=== PATIENT | female | born 1975 | race Caucasian/White ===

== ENCOUNTER 2020-08-15 18:39 | Inpatient (IN) | payer BC ==
[2020-08-15 19:19] LABS: #Basophils 0.1 thou/uL (0.0-0.2); #Eosinphils 0.1 thou/uL (0.0-0.7); #Lymphocytes 1.6 thou/uL (1.20-3.40); #Monocytes 0.5 thou/uL (0.11-0.59); #Neutrophils 5.9 thou/uL (1.40-6.50); %Basophils 0.7 % (0.0-1.0); %Eosinophils 1.4 % (0.0-10.0); %Lymphocytes 19.8 % (21.0-51.0); %Monocytes 6.4 % (0.0-10.0); %Neutrophils 71.7 % (42.0-75.0); Hemoglobin 7.2 g/dL (12.0-16.0); Mean Corpuscular Hemoglobin 27.4 pg (27.0-31.0); Mean Platelet Volume 6.7 fL (7.4-10.4); Platelet Count 321 thou/uL (130-400); RBC Distribution Width 12.8 % (11.5-14.5); Red Blood Cell (RBC) Count 2.64 mill/uL (4.20-5.40); White Blood Cell (WBC) Count 8.2 thou/uL (4.8-10.8)
[2020-08-15 19:32] LABS: Bilirubin Negative (Negative); Blood, Urine Moderate (Negative); Glucose, Urine (Dipstick) 500 mg/dL (Negative); Ketone, Urine Negative (Negative); Leukocyte Negative (Negative); Nitrite Negative (Negative); Protein, Urine (Dipstick) > or equal to 300 mg/dL (Neg-Trace); Specific Gravity, Urine 1.025 (1.005-1.030); Urobilinogen 0.2 mg/dL (Less than 2)
[2020-08-15 19:34] LABS: Clarity Cloudy (Clear)
[2020-08-15 19:35] LABS: ALT (SGPT) 15 U/L (8-55); AST (SGOT) 12 U/L (5-34); Albumin 2.4 g/dL (3.5-5.0); Alkaline Phosphatase 81 U/L (40-110); Anion Gap 13 mmol/L (10-20); BUN (Urea Nitrogen) 69 mg/dL (7.0-18.7); Bilirubin, Total Less than 0.2 mg/dL (0.2-1.2); CK (CPK) 383 U/L (29-168); Calc. Creatinine Clearance 0 mL/min (70-130); Calcium 7.7 mg/dL (7.8-10.44); Carbon Dioxide 16 mmol/L (22-29); Chloride 115 mmol/L (98-107); Estimated GFR-MDRD 14; Globulin 2.7 g/dL (2.4-3.5); Glucose 174 mg/dL (70-105); Potassium 5.2 mmol/L (3.5-5.1); Protein, Total 5.1 g/dL (6.0-8.3); Sodium 139 mmol/L (136-145)
[2020-08-15 19:36] LABS: BHCG - Serum Negative (NEGATIVE); Pregs Control Background? CLEAR/WHITE (CLR/WHITE); Pregs Control Bar Appear? YES (CONTROL BAR)
[2020-08-15 19:40] LABS: RBC/HPF 0-3 HPF (0-3); WBC/HPF Greater Than 50 HPF (0-3)
[2020-08-15 19:41] LABS: Bacteria/HPF 4+ HPF (None Seen)
--- NOTE | 2020-08-15 20:15 | RAD ---
FRONTAL RADIOGRAPH CHEST PORTABLE UPRIGHT: 08/15/20 COMPARISON: None. HISTORY: Hypertension and shortness of breath. FINDINGS: No pneumothorax, pleural fluid, focal consolidation, or alveolar edema. the cardiac silhouette appear s enlarged. There is mild pulmonary vascular prominence. IMPRESSION: No lobar consolidation or alveolar edema. Prominent cardiac silhouette POS: ALENA
[2020-08-15] MEDS ORDERED: Labetalol HCl 100 MG/20 ML VIAL ONE (20:42)
[2020-08-15] MEDS ORDERED: Sodium Bicarb 50 MEQ/50 ML Abboject 8.4% SYRINGE ONE (21:08)
[2020-08-15] MEDS ORDERED: Furosemide 40 MG/4 ML VIAL ONE (21:08)
[2020-08-15] MEDS ORDERED: Metoprolol Tartrate 5 MG/5 ML VIAL ONE (21:47)
[2020-08-16] MEDS ORDERED: niCARdipine 20MG In NaCl 20 MG/200 ML BAG ONE ×2 (00:17→03:54)
[2020-08-16] MEDS ORDERED: niCARdipine 25 MG in Sodium Chloride 0.9% 250 ML 240 ML IVPB SCH (00:30)
[2020-08-16] MEDS ORDERED: CEFAZOLIN 1 GM VIAL IM SCH (00:34)
[2020-08-16] MEDS ORDERED: Dextrose 5% in Water 1,000 ML IV PRN (00:36)
[2020-08-16] MEDS ORDERED: HumaLOG 300 UNITS/3 ML VIAL SC PRN (00:36)
[2020-08-16] MEDS ORDERED: Dextrose 50% Abboject 50 ML SYRINGE SLOW IVP PRN (00:36)
[2020-08-16] MEDS ORDERED: CEFAZOLIN 1 GM VIAL IVPB SCH (00:42)
--- NOTE | 2020-08-16 01:44 | HP ---
REASON FOR ADMISSION: Uncontrolled blood pressure. HISTORY OF PRESENT ILLNESS: This is a 44-year-old female patient who is known to have chronic kidney disease stage 3. She has been feeling weak and has been noticing that her blood pressure has been uncontrolled. Also she reports heavy menstrual bleeding and since her last menstrual cycle, her blood pressure has been going up, although she has been taking her medications, her blood pressure continues to be elevated. She recently had some shortness of breath and felt weak. She reported these symptoms, her primary care physician advised to go to the ER. In the ER, she was found to have a very elevated blood pressure, also more anemic than previous. She did receive IV labetalol and IV Lopressor, but blood pressure kept on going up and currently it is systolic of 225. She is being started on a nicardipine drip. Otherwise, she denies chest pain. PAST MEDICAL HISTORY: 1. Chronic kidney disease was stage III, now stage IV. 2. Diabetes, uses insulin and oral antibiotics. 3. High blood pressure. 4. Anemia. 5. Heavy menstrual bleeding, scheduled for ablation next month. 6. Neuropathy. 7. Lower extremity swelling. 8. GERD. 9. Hypothyroidism. SOCIAL HISTORY: She does not smoke. Does not drink alcohol. FAMILY HISTORY: Positive for diabetes and heart disease and strokes. ALLERGIES: NO NOTE OF ANY DRUG ALLERGY. REVIEW OF SYSTEMS: All systems reviewed except the above mentioned, found to be negative. PHYSICAL EXAMINATION: GENERAL: Awake, alert, oriented, does not appear in distress. VITAL SIGNS: Her blood pressure is 220/109, heart rate of 89, temperature 98.2, saturating 99% room air. HEENT: Head is nontraumatic, normocephalic. Pupils equal, reactive. Extraocular movements are intact. Nonicteric sclerae. Well injected conjunctivae. Oral mucosa normal. Nasal mucosa normal. NECK: Supple. No adenopathy. No murmur. Thyroid is not palpable. Trachea is midline. No supraclavicular adenopathy. HEART: S1, S2 regular. Systolic murmur is heard. No displacement of PMI. LUNGS: Clear to auscultation bilaterally. No wheezes, rhonchi, or crackles. ABDOMEN: Bowel sounds are positive. Nontender abdomen. No hepatosplenomegaly. EXTREMITIES: 1+ pitting edema bilateral lower extremities. NEURO: Cranial nerves II through XII within normal limits. Normal motor function. Normal sensory function. LABORATORY DATA: Blood work shows a WBC of 8.2, hemoglobin of 7.2, previous hemoglobin in March was 9, platelets of 321. Sodium 139, potassium 5.2, bicarb of 16, previous bicarb was 20, creatinine 3.58. CK of 383, BNP of 359.6. Urinalysis shows moderate blood, greater than 50 wbc's. EKG shows normal sinus rhythm, QTc of 457 per my read. ASSESSMENT AND PLAN: This is a 44-year-old female patient, who is presenting with weakness and uncontrolled blood pressure, found to be in hypertensive urgency and found to be more anemic, most likely secondary to her heavy menses, also her worsening chronic kidney disease. Cardiac: The patient has hypertensive urgency. She did not respond to IV labetalol and Lopressor. She is started on a nicardipine drip. Renal System and electrolyte: The patient has worsening of her kidney disease. She has worsening metabolic acidosis. She did receive bicarbonate in the ER and Nephrology was contacted by the ER physician. She did receive Kayexalate for high potassium level. Hematology: The patient is more anemic. She will receive a unit of blood. Recheck her labs in the morning. For her diabetes, she will be on insulin sliding scale and long-acting insulin. Her urinalysis is positive for UTI. I will have her on IV Ancef, awaiting urine culture results. One hour of critical care time was spent to manage this patient. Job ID: [id number]
[2020-08-16] MEDS ORDERED: CEFAZOLIN 1 GM VIAL ONE (01:46)
[2020-08-16] MEDS ORDERED: Acetaminophen 325 MG TAB ONE (02:33)
[2020-08-16 03:59] LABS: #Eosinphils 0.1 thou/uL (0.0-0.7); #Lymphocytes 2.1 thou/uL (1.20-3.40); #Monocytes 0.9 thou/uL (0.11-0.59); #Neutrophils 7.4 thou/uL (1.40-6.50); %Basophils 0.3 % (0.0-1.0); %Eosinophils 1.3 % (0.0-10.0); %Lymphocytes 19.7 % (21.0-51.0); %Monocytes 8.9 % (0.0-10.0); %Neutrophils 69.9 % (42.0-75.0); Hemoglobin 8.5 g/dL (12.0-16.0); Mean Corpuscular HGB CONC 32.9 g/dL (32.0-36.0); Mean Corpuscular Hemoglobin 27.4 pg (27.0-31.0); Mean Platelet Volume 6.9 fL (7.4-10.4); Platelet Count 321 thou/uL (130-400); RBC Distribution Width 13.2 % (11.5-14.5); White Blood Cell (WBC) Count 10.6 thou/uL (4.8-10.8)
[2020-08-16 04:24] LABS: Anion Gap 15 mmol/L (10-20); BUN (Urea Nitrogen) 73 mg/dL (7.0-18.7); Calc. Creatinine Clearance 36 mL/min (70-130); Calcium 7.9 mg/dL (7.8-10.44); Carbon Dioxide 14 mmol/L (22-29); Chloride 116 mmol/L (98-107); Estimated GFR-MDRD 13; Glucose 130 mg/dL (70-105); Potassium 4.4 mmol/L (3.5-5.1); Sodium 141 mmol/L (136-145)
[2020-08-16] MEDS: ceFAZolin 1 GM/D5W 1 GM in Premix Bag 1 BAG IVPB SCH ×4 (05:18→20:46)
[2020-08-16] MEDS ORDERED: DILTIAZEM HCL 60 MG PO SCH (09:00)
[2020-08-16] MEDS ORDERED: Lisinopril 10 MG TAB ONE (10:38)
[2020-08-16] MEDS: Lisinopril 20 MG TAB PO SCH (10:40)
[2020-08-16] MEDS ORDERED: Metoprolol Tartrate 5 MG/5 ML VIAL ONE (11:05)
[2020-08-16] MEDS: Metoprolol Tartrate 5 MG/5 ML VIAL IVP PRN ×2 (11:10→17:43)
[2020-08-16] MEDS ORDERED: Acetaminophen 500 MG TAB ONE (11:51)
[2020-08-16] MEDS: Carvedilol 25 MG TAB PO SCH ×2 (12:00→20:51)
[2020-08-16] MEDS: Pregabalin 50 MG CAP PO SCH ×3 (12:01→20:51)
--- NOTE | 2020-08-16 12:02 | CON ---
DATE OF CONSULTATION: REASON FOR CONSULTATION: Elevated creatinine. HISTORY OF PRESENT ILLNESS: This is a very pleasant 44-year-old female, who presented to the hospital for uncontrolled blood pressure. The patient's creatinine has increased from 3.5 to 3.7. Prior baseline in December was 1.8. The patient has had progressive increase in creatinine and is developing hyperkalemia and acidosis. The patient denies any poor appetite. Denies any nausea, vomiting, or chest pain. High blood pressure is running high as well. PAST MEDICAL HISTORY: Hypertension, CKD stage 4, diabetes mellitus, obesity, neuropathy, swelling, GERD, and hypothyroidism. SOCIAL HISTORY: No alcohol or drug use. FAMILY HISTORY: Negative for ESRD. ALLERGIES: REVIEWED. HOME MEDICATIONS: REVIEW OF SYSTEMS: 15-point review of system was performed, negative except for positives noted above. HEENT: Eyes intact, no diplopia. Ears: No hearing loss or earache. Nose: No discharge or bleeding. Chest: No cough or phlegm. Abdomen: No nausea or vomiting. Genitourinary: No hematuria. No Sawant catheter. Musculoskeletal: No low back pain. No joint swelling or pain. Neurological: No syncope. No seizures. Skin: No complaints of rash or itching. Psychiatric: No depression. Constitutional: No weight loss or loss of appetite. PHYSICAL EXAMINATION: General: The patient is awake and alert. Vital Signs: Afebrile, pulse 95, breathing at 16, blood pressure 170/90. HEENT: Head normocephalic and atraumatic. Eyes intact, no ulcers. Nose intact, no ulcers. Ears intact, no ulcers. Neck: Supple. No JVD. Chest: Symmetrical and clear. Cardiovascular: Shows S1 and S2, no rub, no murmur. Gastrointestinal: Abdomen is soft, bowel sounds positive. Extremities: Show no edema or ulcers. Skin: Shows no rash or petechiae. Musculoskeletal: Shows no joint swelling or stiffness. Genitourinary: Shows no Sawant or CVA tenderness. Neurologic: Motor intact. Cranial nerves intact. ASSESSMENT AND PLAN: 1. Chronic kidney disease stage 5. Risks versus benefits of dialysis were discussed. We will plan for AV fistula. We will titrate risk factors including blood pressure, hypertension, would recommend adding hydralazine . 2. Anemia, stable. Medication based on GFR appropriate. Job ID: [id number]
[2020-08-16] MEDS ORDERED: HumaLOG 300 UNITS/3 ML VIAL ONE (12:59)
[2020-08-16 14:55] LABS: SARS-CoV-2 MS2 Positive; SARS-CoV-2 N Gene Negative; SARS-CoV-2 S Gene Negative; SARS-CoV-2 by NAA Not Detected (NotDetected); SARS-CoV-2 orf1ab Negative
--- NOTE | 2020-08-16 15:00 | ULT ---
Vascular mapping ultrasound for dialysis access: 08/16/2020 HISTORY: End-stage renal disease, evaluate for dialysis access. TECHNIQUE: Arterial and venous structures of bilateral upper extremities assessed with Doppler inter rogation including color flow and spectral analysis as detailed below. FINDINGS: VESSEL DIAMETER (mm) Right Brachial Artery 6.3 Right Radial Artery 2.5 Right Ulnar Artery 2.0 Left Brachial Artery 5.3 Left Radial Artery 3.2 Left Ulnar Artery 2.7 The internal jugular vein, subclavian vein, and axillary vein are patent bilaterally. RIGHT CEPHALIC VEIN: Above Elbow Proximal 4.6 Above Elbow Mid 4.3 Above Elbow Distal 5.5 At Elbow 6.2 Below Elbow Proximal 3.7 Below Elbow Mid 3.8 Below Elbow Distal 3.4 RIGHT BASILIC VEIN: Above Elbow Proximal 5.8 Above Elbow Mid 5.5 Above Elbow Distal 6.3 At Elbow 4.1 Below Elbow Proximal 2.5 Below Elbow Mid 2.1 Below Elbow Distal 1.7 LEFT BASILIC VEIN: Above Elbow Proximal 5.0 Above Elbow Mid 6.8 Above Elbow Distal 6.8 At Elbow 5.2 Below Elbow Proximal 3.3 Below Elbow Mid 3.2 Below Elbow Distal 2.7 LEFT CEPHALIC VEIN: Above Elbow Proximal 5.7 Above Elbow Mid 5.5 Above Elbow Distal 5.3 At Elbow 5.7 Below Elbow Proximal 3.7 Below Elbow Mid 3.8 Below Elbow Distal 3.5 IMPRESSION: Vascular access mapping prior to dialysis access as detailed above. Transcribed Date/Time: 08/16/2020 3:28 PM
[2020-08-16] MEDS ORDERED: CEFAZOLIN 2 GM in Premix Bag 1 BAG IVPB SCH (15:15)
--- NOTE | 2020-08-16 17:16 | CON ---
DATE OF CONSULTATION: HISTORY OF PRESENT ILLNESS: Angie Coronado is a 44-year-old female, admitted two days ago, held in the ER because of lack of beds in the hospital. Patient lives in [place]. She is . She has two children. She has chronic kidney disease. She has type 2 diabetes mellitus, insulin dependent, oral hypoglycemic dependent for the past more than 20 years. She has deteriorating renal function. Dr. Pendleton has asked me to see her regarding placement of a fistula. Ultrasound vein mapping reveals excellent veins in both arms despite antecubital IV placed on admission, removed today on my consultation. Plan is for left arm fistula. She will hopefully be able to avoid a catheter. She was admitted this hospitalization for [id number] hypertension. ALLERGIES: NONE. SOCIAL HISTORY: Tobacco, none. Alcohol, none. MEDICATIONS: 1. Levothyroxine 50 mcg a day. 2. Furosemide 40 mg b.i.d. 3. Carvedilol 25 mg b.i.d. 4. Repaglinide 0.5 mg t.i.d. 5. Lisinopril 20 mg daily. 6. Lyrica 50 mg t.i.d. 7. Diltiazem 60 mg b.i.d. 8. Atorvastatin 20 mg p.m. 9. Glipizide 10 mg a.m. with meals. 10. Protonix 40 mg a day. 11. Metolazone 2.5 mg daily. PAST SURGICAL HISTORY: , ankle surgery, and foot surgery. PAST MEDICAL HISTORY: Type 2 diabetes mellitus; hypertension; and chronic kidney disease, almost needing dialysis. REVIEW OF SYSTEMS: Ten-point noncontributory. FAMILY HISTORY: Noncontributory. PHYSICAL EXAMINATION: VITAL SIGNS: 98 degrees, 170/90, and respiratory rate 20. HEAD, EARS, EYES, NOSE, AND THROAT: Unremarkable. LUNGS: Clear to auscultation. CARDIAC: Regular rate and rhythm, without murmur or gallop. ABDOMEN: Soft, obese, nontender. Infraumbilical midline scar from previous C-sections, infraumbilical incisional hernia. EXTREMITIES: Unremarkable. ASSESSMENT/PLAN: 1. End-stage renal disease secondary to diabetes and hypertension. Plan: Left arm primary fistula. She understands risks and benefits, consents. 2. Incisional hernia, infraumbilical, asymptomatic. Would need to repair should she ever consider peritoneal dialysis. 3. Morbid obesity. 4. Metabolic syndrome. 5. Hypertension. 6. Insulin-dependent diabetes mellitus. Job ID: [id number]
[2020-08-16] MEDS: Levothyroxine Sodium 50 MCG TAB PO SCH (18:34)
[2020-08-16] MEDS: Insulin Glargine 15 UNITS in Pre-Filled Syringe 1 EACH SC SCH (21:57)
[2020-08-17] MEDS: Metoprolol Tartrate 5 MG/5 ML VIAL IVP PRN (04:23)
[2020-08-17] MEDS: ceFAZolin 1 GM/D5W 1 GM in Premix Bag 1 BAG IVPB SCH ×2 (05:16→17:40)
[2020-08-17] MEDS: Lisinopril 20 MG TAB PO SCH (07:52)
[2020-08-17] MEDS: Carvedilol 25 MG TAB PO SCH (07:53)
[2020-08-17] MEDS: Levothyroxine Sodium 50 MCG TAB PO SCH (07:53)
[2020-08-17] MEDS: Pregabalin 50 MG CAP PO SCH ×3 (07:53→20:32)
[2020-08-17] MEDS ORDERED: FLU VACC QS2020-21(6MOS UP)/PF 60 MCG/0.5 ML SYRINGE IM ONE (09:00)
[2020-08-17] MEDS ORDERED: Bupivacaine HCl 0.5%/Epinephrine 1:200,000/PF 30 ml Vial ONE (10:48)
[2020-08-17 11:43] LABS: Anion Gap 12 mmol/L (10-20); BUN (Urea Nitrogen) 68 mg/dL (7.0-18.7); Calc. Creatinine Clearance 38 mL/min (70-130); Calcium 7.9 mg/dL (7.8-10.44); Carbon Dioxide 18 mmol/L (22-29); Chloride 117 mmol/L (98-107); Estimated GFR-MDRD 12; Glucose 121 mg/dL (70-105); Potassium 4.1 mmol/L (3.5-5.1); Sodium 143 mmol/L (136-145)
--- NOTE | 2020-08-17 11:43 | PRG ---
DATE OF SERVICE: SUBJECTIVE: A 44-year-old female being seen for acute kidney injury. The patient denied nausea, vomiting, or chest pain. OBJECTIVE: General: The patient is awake and alert. VITAL SIGNS: Pulse 80, breathing 16, and blood pressure . HEENT: Head normocephalic and atraumatic. Eyes intact, no ulcers. Nose intact, no ulcers. Ears intact, no ulcers. Neck: Supple. No JVD. Chest: Symmetrical and clear. Cardiovascular: Shows S1 and S2, no rub, no murmur. Gastrointestinal: Abdomen is soft, bowel sounds positive. Extremities: Show no edema or ulcers. Skin: Shows no rash or petechiae. Musculoskeletal: Shows no joint swelling or stiffness. Genitourinary: Shows no Sawant or CVA tenderness. Neurologic: Motor intact. Cranial nerves intact. LABORATORY DATA: Show hemoglobin is pending and creatinine is pending. ASSESSMENT: Chronic kidney disease stage 5. We will follow labs. Hypertension, stable. Anemia, stable. Medication based on GFR appropriate. Hypertension. Would recommend increasing hydralazine to 100 t.i.d. and adding nifedipine 30 mg XL daily. Job ID: [id number]
[2020-08-17] MEDS ORDERED: Fentanyl 100 MCG/2 ML VIAL ONE ×2 (12:41→13:29)
[2020-08-17 13:26] VITALS: BMI 44.9
[2020-08-17] MEDS ORDERED: Lidocaine 2% w/Epinephrine 1:200K 20 ML VIAL ONE (13:31)
[2020-08-17] MEDS ORDERED: Bupivacaine PF 0.5% 30 ML VIAL ONE (13:31)
[2020-08-17] MEDS ORDERED: Heparin 5,000 UNITS/ML VIAL ONE (13:31)
[2020-08-17] MEDS ORDERED: Ioversol 68 % 50 ML VIAL ONE (13:31)
[2020-08-17] MEDS ORDERED: Protamine Sulfate 50 MG/5 ML VIAL ONE (13:31)
[2020-08-17] MEDS ORDERED: Propofol 500 MG/50 ML VIAL ONE (13:37)
[2020-08-17] MEDS ORDERED: Midazolam HCl 2 mg/2 ml Vial ONE (13:37)
--- NOTE | 2020-08-17 17:18 | PDOC.HOSPP ---
- Subjective Encounter Date: 08/17/20 Subjective: The patient has no new complaints today. - Objective Vital Signs & Weight: Vital Signs (12 hours) Temp Pulse Resp BP Pulse Ox 08/17/20 15:25 96.8 F L 85 18 118/93 H 94 L 08/17/20 07:20 97.7 F 83 12 181/83 H 95 Weight Admit Weight 257 lb 15.053 oz Weight 295 lb 12.8 oz I&O: 08/16/20 08/17/20 08/18/20 06:59 06:59 06:59 Intake Total 120 480 Balance 120 480 Result Diagrams: 08/16/20 03:50 08/17/20 11:03 Additional Labs: Accuchecks 08/17/20 08/17/20 08/17/20 16:47 12:21 05:37 POC Glucose 122 H 115 H 122 H 08/16/20 22:12 POC Glucose 156 H Hospitalist ROS - Medication Medications: Active Medications Generic Name Dose Route Start Last Admin Trade Name Freq PRN Reason Stop Dose Admin Carvedilol 25 mg 08/16/20 09:00 08/17/20 07:53 Carvedilol 25 Mg Tab PO 25 mg BID JASON Administration Diltiazem HCl 60 mg 08/16/20 09:00 08/17/20 07:52 Diltiazem Hcl 30 Mg Tablet PO 60 mg BID JASON Administration Insulin Glargine 15 units/ 0.15 mls @ 0 mls/hr 08/16/20 21:00 08/16/20 21:57 Miscellaneous Medication SC Not Given HS JASON Cefazolin Sodium/Dextrose 1 gm 50 mls @ 100 mls/hr 08/16/20 06:00 08/17/20 05:16 / Device IVPB 50 mls 0600,1800 JASON Administration Insulin Human Lispro 0 units 08/16/20 00:36 08/16/20 13:01 Humalog 300 Units/3 Ml Vial SC 2 unit .MODERATE SLIDING SC PRN Administration Moderate Correctional Scale Levothyroxine Sodium 50 mcg 08/16/20 09:00 08/17/20 07:53 Levothyroxine Sodium 50 Mcg Tab PO 50 mcg QAM JASON Administration Lisinopril 20 mg 08/16/20 09:00 08/17/20 07:52 Lisinopril 20 Mg Tab PO 20 mg DAILY JASON Administration Metoprolol Tartrate 5 mg 08/15/20 21:41 08/17/20 04:23 Metoprolol Tartrate 5 Mg/5 Ml Vial IVP 5 mg Q6H PRN Administration SBP > 140 Pregabalin 50 mg 08/16/20 09:00 08/17/20 16:34 Pregabalin 50 Mg Cap PO Not Given TID JASON - Exam General Appearance: awake alert ENT: normocephalic atraumatic Neck: supple, no JVD Respiratory: normal chest expansion, no tachypnea Extremities: no cyanosis, no clubbing Neurological: cranial nerve grossly intact, no focal deficits Hosp A/P (1) Hypertensive urgency Code(s): I16.0 - HYPERTENSIVE URGENCY Status: Acute (2) End stage renal disease Code(s): N18.6 - END STAGE RENAL DISEASE Status: Acute (3) Anemia due to chronic kidney disease Code(s): N18.9 - CHRONIC KIDNEY DISEASE, UNSPECIFIED; D63.1 - ANEMIA IN CHRONIC KIDNEY DISEASE Status: Acute - Plan The patient's blood pressure has been well controlled through the end of the day. Continue current antihypertensive medications. If her blood pressure becomes uncontrolled we will increase hydralazine and add nifedipine as recommended by nephrology. Hemodialysis per nephrology.
[2020-08-17] MEDS: hydrALAZINE 25 MG TAB PO SCH ×2 (17:39→20:32)
--- NOTE | 2020-08-17 19:48 | OP ---
DATE OF PROCEDURE: 08/17/2020 PREOPERATIVE DIAGNOSES: Chronic kidney disease, not yet started dialysis; obesity; diabetes. POSTOPERATIVE DIAGNOSES: Chronic kidney disease, not yet started dialysis; obesity; diabetes. PROCEDURE PERFORMED: Left Odalis fistula, 4 mm coronary dilator, cephalic vein outflow wrist, good quality radial artery. ANESTHESIA: Regional and TIVA. DESCRIPTION OF PROCEDURE: The patient was taken to the operating room where under regional anesthesia and intravenous sedation, left upper extremity was prepared with ChloraPrep and draped in routine fashion. Incision was made very longitudinally in the left wrist between the cephalic vein and radial artery, carried down through skin and subcutaneous tissue. Cephalic vein was of good quality as was the radial artery. Both dissected free and the patient was given 6000 units of heparin intravenously. Radial artery dissected free, controlled with silastic vessel loop. Cephalic vein dissected free, stumped on the hand side, ligated with 3-0 silk suture, divided, spatulated, interrogated, passing coronary dilators from 2 mm to 4 mm coronary dilator without obstruction, infiltrating heparinized saline solution, and placing an atraumatic bulldog clamp and longitudinal arteriotomy made in the radial artery for a 2.5 cm anastomosis. Continuous suture of 6-0 Prolene used to anastomose the end cephalic vein to side radial artery after spatulating the cephalic vein accordingly. After completing the anastomosis, vascular clamps were released. There was a good Doppler signal throughout the cephalic vein outflow in the upper extremity. Inspection was made. There were no visible branches from the wrist incision. The patient was given 25 mg protamine by Anesthesia. Subcutaneous tissue was approximated with 3-0 Monocryl, skin with subdermal 4-0 Monocryl, and Dresden glue applied. Job ID: [id number]
[2020-08-17] MEDS: Furosemide 40 MG TAB PO SCH (20:32)
[2020-08-17] MEDS: Insulin Glargine 15 UNITS in Pre-Filled Syringe 1 EACH SC SCH (20:38)
[2020-08-18] MEDS: ceFAZolin 1 GM/D5W 1 GM in Premix Bag 1 BAG IVPB SCH ×2 (05:24→18:03)
[2020-08-18] MEDS: Lisinopril 20 MG TAB PO SCH (09:52)
[2020-08-18] MEDS: hydrALAZINE 25 MG TAB PO SCH ×3 (09:53→20:15)
[2020-08-18] MEDS: Furosemide 40 MG TAB PO SCH ×2 (09:54→20:15)
[2020-08-18] MEDS: Pregabalin 50 MG CAP PO SCH ×3 (09:54→20:15)
[2020-08-18] MEDS: Levothyroxine Sodium 50 MCG TAB PO SCH (09:54)
[2020-08-18] MEDS: Acetaminophen 500 MG TAB PO PRN ×2 (09:57→17:08)
[2020-08-18 10:27] LABS: Hemoglobin 8.3 g/dL (12.0-16.0)
--- NOTE | 2020-08-18 10:45 | PRG ---
DATE OF SERVICE: SUBJECTIVE: A 44-year-old female being seen for acute kidney injury. The patient denies any nausea, vomiting, or chest pain. OBJECTIVE: GENERAL: The patient is awake and alert. VITAL SIGNS: Afebrile, pulse 84, breathing at 16, blood pressure 152/71. HEENT: Head normocephalic and atraumatic. Eyes intact, no ulcers. Nose intact, no ulcers. Ears intact, no ulcers. Neck: Supple. No JVD. Chest: Symmetrical and clear. Cardiovascular: Shows S1 and S2, no rub, no murmur. Gastrointestinal: Abdomen is soft, bowel sounds positive. Extremities: Show no edema or ulcers. Skin: Shows no rash or petechiae. Musculoskeletal: Shows no joint swelling or stiffness. Genitourinary: Shows no Sawant or CVA tenderness. Neurologic: Motor intact. Cranial nerves intact. LABORATORY DATA: Pending. ASSESSMENT: Chronic kidney disease stage 5. Recheck labs. Hypertensive anemia, stable. No urgent indication for dialysis. We will follow labs. Job ID: [id number]
[2020-08-18 10:47] LABS: Anion Gap 14 mmol/L (10-20); BUN (Urea Nitrogen) 63 mg/dL (7.0-18.7); Calc. Creatinine Clearance 38 mL/min (70-130); Calcium 7.9 mg/dL (7.8-10.44); Carbon Dioxide 16 mmol/L (22-29); Chloride 114 mmol/L (98-107); Estimated GFR-MDRD 12; Glucose 123 mg/dL (70-105); Potassium 3.9 mmol/L (3.5-5.1); Sodium 140 mmol/L (136-145)
--- NOTE | 2020-08-18 15:33 | PDOC.HOSPP ---
- Subjective Subjective: BP still elevated. d/w with Dr. Pendleton, recommended make some adjustment to her antihypertensive as follow: Restart Coreg 25 mg BID Incr hydralazine to 100 mg TID D/C Cardizem, and start Procardia XL 90 mg daily Cont current Lasix and Lisinopril - Objective Vital Signs & Weight: Vital Signs (12 hours) Temp Pulse Resp BP BP BP Pulse Ox 08/18/20 12:55 98.5 F 80 16 157/73 H 96 08/18/20 09:53 84 08/18/20 09:52 152/71 H 08/18/20 07:35 98.1 F 84 16 179/86 H 99 08/18/20 04:00 97.8 F 90 15 188/78 H 98 Weight Admit Weight 257 lb 15.053 oz Weight 295 lb 4.8 oz I&O: 08/17/20 08/18/20 08/19/20 06:59 06:59 06:59 Intake Total 480 980 Balance 480 980 Result Diagrams: 08/18/20 10:20 08/18/20 10:20 Additional Labs: Accuchecks 08/18/20 08/18/20 08/17/20 11:04 05:32 20:38 POC Glucose 120 H 87 167 H 08/17/20 16:47 POC Glucose 122 H Radiology Reviewed by me: Yes EKG Reviewed by me: Yes Hospitalist ROS - Medication Medications: Active Medications Generic Name Dose Route Start Last Admin Trade Name Freq PRN Reason Stop Dose Admin Acetaminophen 1,000 mg 08/17/20 12:52 08/18/20 09:57 Acetaminophen 500 Mg Tab PO 1,000 mg Q6H PRN Administration Moderate to Severe Pain (6-10) Furosemide 40 mg 08/16/20 09:00 08/18/20 09:54 Furosemide 40 Mg Tab PO 40 mg BID JASON Administration Insulin Glargine 15 units/ 0.15 mls @ 0 mls/hr 08/16/20 21:00 08/17/20 20:38 Miscellaneous Medication SC 0.15 mls HS JASON Administration Cefazolin Sodium/Dextrose 1 gm 50 mls @ 100 mls/hr 08/16/20 06:00 08/18/20 05:24 / Device IVPB 50 mls 0600,1800 JASON Administration Insulin Human Lispro 0 units 08/16/20 00:36 08/16/20 13:01 Humalog 300 Units/3 Ml Vial SC 2 unit .MODERATE SLIDING SC PRN Administration Moderate Correctional Scale Levothyroxine Sodium 50 mcg 08/16/20 09:00 08/18/20 09:54 Levothyroxine Sodium 50 Mcg Tab PO 50 mcg QAM JASON Administration Lisinopril 20 mg 08/16/20 09:00 08/18/20 09:52 Lisinopril 20 Mg Tab PO 20 mg DAILY JASON Administration Metoprolol Tartrate 5 mg 08/15/20 21:41 08/17/20 04:23 Metoprolol Tartrate 5 Mg/5 Ml Vial IVP 5 mg Q6H PRN Administration SBP > 140 Pregabalin 50 mg 08/16/20 09:00 08/18/20 09:54 Pregabalin 50 Mg Cap PO 50 mg TID JASON Administration - Exam General Appearance: NAD Eye: PERRL ENT: normocephalic atraumatic Neck: supple Heart: RRR Respiratory: CTAB Gastrointestinal: soft, non-tender Extremities: no cyanosis Skin: normal turgor Neurological: cranial nerve grossly intact Musculoskeletal: normal tone, normal strength Psychiatric: normal affect, normal behavior Hosp A/P - Plan (1) Hypertensive urgency Code(s): I16.0 - HYPERTENSIVE URGENCY Status: Acute (2) End stage renal disease Code(s): N18.6 - END STAGE RENAL DISEASE Status: Acute (3) Anemia due to chronic kidney disease Code(s): N18.9 - CHRONIC KIDNEY DISEASE, UNSPECIFIED; D63.1 - ANEMIA IN CHRONIC KIDNEY DISEASE Status: Acute - Plan s/p AVF placement d/w Dr. Pendleton, who recommend to make the follow changes: Restart Coreg 25 mg BID Incr hydralazine to 100 mg TID D/C Cardizem, and start Procardia XL 90 mg daily Cont current Lasix and Lisinopril Home tomorrow if stable follow renal US
[2020-08-18] MEDS ORDERED: hydrALAZINE 25 MG TAB PO SCH (15:45)
--- NOTE | 2020-08-18 16:29 | EKG ---
Test Reason : Blood Pressure : / mmHG Vent. Rate : 087 BPM Atrial Rate : 087 BPM P-R Int : 166 ms QRS Dur : 086 ms QT Int : 380 ms P-R-T Axes : 030 -17 045 degrees QTc Int : 457 ms Normal sinus rhythm Possible Left atrial enlargement Left ventricular hypertrophy Inferior infarct , age undetermined Abnormal ECG Confirmed by PIERCE AUSTIN DO ([id number]), dictionary editor SAMIRA BOSWELL ([id number]) on 08/18/2020 4:29:23 PM Referred By: Confirmed By:PIERCE AUSTIN DO
--- NOTE | 2020-08-18 16:38 | ULT ---
ULTRASOUND RETROPERITONEUM COMPLETE: (RENAL) DATE: 08/18/2020 HISTORY: 44-year-old female with acute kidney injury FINDINGS: The right kidney measures 13 x 5.5 x 5.5 cm. The left kidney measures 13.5 x 7 x 6.5 cm. Both kidneys have normal parenchymal echogenicity. There is no hydronephrosis. There is an approximately 1.5 x 1 cm right renal mid pole parenchymal cyst. Cursory images of the urinary bladder demonstrate no gross abnormality. IMPRESSION: 1) small right renal cyst. 2) otherwise negative
[2020-08-18] MEDS: Carvedilol 25 MG TAB PO SCH (16:48)
[2020-08-18] MEDS: traMADol HCl 50 MG TAB PO PRN (20:15)
[2020-08-18] MEDS: Insulin Glargine 15 UNITS in Pre-Filled Syringe 1 EACH SC SCH (20:15)
[2020-08-19] MEDS: Metoprolol Tartrate 5 MG/5 ML VIAL IVP PRN (00:15)
[2020-08-19] MEDS ORDERED: cloNIDine 0.1 MG TAB PO PRN (01:33)
[2020-08-19] MEDS ORDERED: NIFEdipine XL 90 MG TAB PO SCH ×2 (04:15→09:00)
[2020-08-19] MEDS: ceFAZolin 1 GM/D5W 1 GM in Premix Bag 1 BAG IVPB SCH (05:25)
[2020-08-19] MEDS: Pregabalin 50 MG CAP PO SCH ×2 (08:27→15:02)
[2020-08-19] MEDS: Levothyroxine Sodium 50 MCG TAB PO SCH (08:27)
[2020-08-19] MEDS: Furosemide 40 MG TAB PO SCH (08:27)
[2020-08-19] MEDS: Carvedilol 25 MG TAB PO SCH (08:27)
[2020-08-19] MEDS: Lisinopril 20 MG TAB PO SCH (08:27)
[2020-08-19] MEDS: hydrALAZINE 25 MG TAB PO SCH ×2 (09:02→14:40)
[2020-08-19 09:20] LABS: Hemoglobin 8.7 g/dL (12.0-16.0); Mean Corpuscular HGB CONC 33.6 g/dL (32.0-36.0); Mean Corpuscular Hemoglobin 27.9 pg (27.0-31.0); Mean Corpuscular Volume 83.1 fL (78.0-98.0); Mean Platelet Volume 7.2 fL (7.4-10.4); Platelet Count 316 thou/uL (130-400); RBC Distribution Width 13.2 % (11.5-14.5); Red Blood Cell (RBC) Count 3.12 mill/uL (4.20-5.40); White Blood Cell (WBC) Count 8.5 thou/uL (4.8-10.8)
[2020-08-19 09:39] LABS: Anion Gap 14 mmol/L (10-20); BUN (Urea Nitrogen) 61 mg/dL (7.0-18.7); Calc. Creatinine Clearance 40 mL/min (70-130); Calcium 8.1 mg/dL (7.8-10.44); Carbon Dioxide 16 mmol/L (22-29); Chloride 112 mmol/L (98-107); Estimated GFR-MDRD 13; Glucose 85 mg/dL (70-105); Potassium 3.5 mmol/L (3.5-5.1); Sodium 138 mmol/L (136-145)
[2020-08-19] MEDS: traMADol HCl 50 MG TAB PO PRN (10:07)
[2020-08-19] MEDS: Acetaminophen 500 MG TAB PO PRN (11:33)
--- NOTE | 2020-08-19 13:35 | PDOC.DS.DS ---
Provider - Provider Date of Admission: 08/16/20 00:09 Admitting Provider: John Montez MD Consultations: General Surgery (AV fistula placement), Nephrology Primary Care Physician: Son Valdez DO Course - Hospital Course Hospital Course: DISCHARGE diagnoses: 1. End-stage renal disease 2. Hypertensive urgency 3. Anemia due to chronic kidney disease 4. Status post left Odalis fistula placement left wrist by Dr. King on 08/17 5. Diabetes type 2 6. GERD 7. Hypothyroidism History of present illness and brief hospital course: The patient is a pleasant 44 years old female who has significant past medical histories of CKD stage IV, diabetes, hypothyroidism, hypertension, who presented to the ED with uncontrolled hypertension. She was evaluated by her PCP, and also complained of short of breath. Her blood pressure was elevated. She was advised to go to the ED for further evaluation. Upon arrival, her systolic was 225, she was given IV labetalol, blood pressure. She was subsequently started on nicardipine drip, for blood pressure control. Nephrology was consulted. She gradually wean off on nicardipine drip. Her blood pressures have been adjusted by nephrology. Her blood pressure is doing much better. Dr. Pendleton, recommend discontinue hydralazine's upon discharge, and switch her Cardizem to Procardia XL 90 mg daily. We also resume her Coreg. She will continue her lisinopril 20 mg daily, and Lasix 40 mg twice daily. This regimen, appeared to be working well for her. Patient was monitored overnight. She is doing well blood pressure now much better controlled. She is okay to discharge from nephrology start and plan. It should be noted that, she also had a fistula placement by Dr. King on 08/17, she tolerated procedure well. She will be follow-up with nephrology Dr. Perez in 2 weeks, and follow-up with Dr. King and PCP upon discharge. Resuscitation Status: 08/16/20 00:09 Resuscitation Status Routine Resuscitation Status: FULL: Full Resuscitation - Labs Lab Results: Laboratory Results - last 24 hr 08/19/20 11:19: POC Glucose 121 H 08/19/20 08:40: WBC 8.5, RBC 3.12 L, Hgb 8.7 L, Hct 25.9 L, MCV 83.1, MCH 27.9, MCHC 33.6, RDW 13.2, Plt Count 316, MPV 7.2 L 08/19/20 08:40: Sodium 138, Potassium 3.5, Chloride 112 H, Carbon Dioxide 16 L, Anion Gap 14, BUN 61 H, Creatinine 3.82 H, Estimated GFR (MDRD) 13, Glucose 85, Calcium 8.1 08/19/20 05:33: POC Glucose 97 08/18/20 20:10: POC Glucose 127 H 08/18/20 16:30: POC Glucose 137 H Allergies No Known Drug Allergies Allergy (Verified 08/18/20 23:00) - Physical Exam Vitals: Vital Signs (12 hours) Temp Pulse Resp BP BP Pulse Ox 08/19/20 11:31 97.6 F 77 16 111/59 L 97 08/19/20 10:11 99/51 L 08/19/20 08:17 97.8 F 82 16 127/59 L 96 08/19/20 05:30 151/67 H 08/19/20 04:25 84 194/76 H 08/19/20 03:15 97.6 F 84 12 194/86 H 97 08/19/20 01:55 198/84 H Weight Admit Weight 257 lb 15.053 oz Weight 299 lb 3.2 oz Physical Exam: The patient was seen and examined on the day of discharge. PHYSICAL EXAM: General Appearance: Alert, oriented, resting comfortably, no apparent distress, well developed/nourished. HEENT: Normocephalic/atraumatic, moist mucous membrane, normal ENT inspection, normal tones. PERRLA, no scleral icterus, normal conjunctiva Neck: Supple, normal inspection, no JVD Respiratory: Lungs are clear bilaterally, normal breath sounds, no accessory muscle use Cardiovascular: Regular rate, regular rhythm, no murmur, no rubs Abdomen: Soft, nontender, nondistended, normal bowel sounds, no organomegaly, no guarding no rebound Back: Normal inspection, no CVA tenderness Extremities: No clubbing, no cyanosis, no edema. New AVF placement left wrist healing well Psych/Mental Status: Normal affect, speech, non-pressured, AAO x 3 Neurologic: CN II-XII are intact. Skin: Warm/Dry, Normal Color, no rashes Plan - Discharge Medications Prescriptions: NIFEdipine [Procardia XL] 90 mg PO DAILY #90 tab Home Medications: Medication Instructions Recorded Confirmed Type Atorvastatin Calcium [Lipitor] 20 mg PO QPM 08/16/20 08/16/20 History Carvedilol [Coreg] 25 mg PO BID 08/16/20 08/16/20 History Furosemide 40 mg PO BID 08/16/20 08/16/20 History Levothyroxine Sodium [Euthyrox] 50 mcg PO QAM 08/16/20 08/16/20 History Lisinopril 20 mg PO DAILY 08/16/20 08/16/20 History Pantoprazole Sodium [Protonix] 40 mg PO DAILY 08/16/20 08/16/20 History Pregabalin [Lyrica] 50 mg PO TID 08/16/20 08/16/20 History Repaglinide 0.5 mg PO TID 08/16/20 08/16/20 History Vit D3-Vit K/Berberine/Hops 1 tablet PO DAILY 08/16/20 08/16/20 History [Ostera Tablet] glipiZIDE [glipiZIDE ER] 10 mg PO QAM-WM 08/16/20 08/16/20 History NIFEdipine [Procardia XL] 90 mg PO DAILY #90 tab 08/19/20 Rx Allergies: No Known Drug Allergies Allergy (Verified 08/18/20 23:00) - Discharge Instructions Discharge Instructions:: Please stop metalazone and Cardizem. Your nephrology started you on Procardia XL, new script sent to your pharmacy Follow up with Dr Davis in 1-2 weeks. Activity:: Activity as Tolerated (exercise & use arm left w/o restrictions) Nourishment:: Low Sodium Diet - Follow up Plan Referrals: Hiro King MD [Active] - 3-4 Weeks Son Valdez DO [Primary Care Provider] - Nancy Davis MD [Active] - 14 Days Disposition: HOME Quality - Care Measures CORE MEASURES:: N/A
[2020-08-19] MEDS ORDERED: Lidocaine 5% Patch TD SCH (14:45)
[2020-08-19] MEDS ORDERED: HYDROcodone/Acetaminophen 5/325 mg Tablet PO PRN (14:45)
[2020-08-19] MEDS ORDERED: Sodium Bicarbonate Tab 325 MG TAB PO SCH (15:00)
[2020-08-19 15:01] VITALS: BP 127/57; TEMP 97.8
[2020-08-20] MEDS ORDERED: Lidocaine Patch Removal 1 EACH TOP SCH (03:00)
--- NOTE | 2020-08-20 04:59 | PRG ---
DATE OF SERVICE: 08/19/2020 SUBJECTIVE: A 44-year-old female, being seen for stage 5 chronic kidney disease. The patient denies any nausea, vomiting, or chest pain. PHYSICAL EXAMINATION: GENERAL: The patient is awake and alert. VITAL SIGNS: Pulse 77, breathing at 16, blood pressure 111/59. HEENT: Head normocephalic and atraumatic. Eyes intact, no ulcers. Nose intact, no ulcers. Ears intact, no ulcers. NECK: Supple. No JVD. CHEST: Symmetrical and clear. CARDIOVASCULAR: Shows S1 and S2, no rub, no murmur. GASTROINTESTINAL: Abdomen is soft, bowel sounds positive. EXTREMITIES: Show no edema or ulcers. SKIN: Shows no rash or petechiae. MUSCULOSKELETAL: Shows no joint swelling or stiffness. GENITOURINARY: Shows no Sawant or CVA tenderness. NEUROLOGIC: Motor intact. Cranial nerves intact. LABORATORY DATA: Show hemoglobin 8.7. Potassium is 3.5, bicarb 16. ASSESSMENT AND PLAN: 1. Stage 5 chronic kidney disease. No urgent indication for dialysis. 2. Hypertension, stable. 3. Anemia, stable. 4. Renal ultrasound was negative. 5. Medication based on GFR appropriate. No indication for dialysis. Job ID: [id number]
[2020-08-20] MEDS ORDERED: NIFEdipine XL 90 MG TAB PO SCH (09:00)
== END 2020-08-19 16:42 | disposition home or self-care (01) | DRG 673 ==
LOC: ERS 18:39 → ERHOLD 08-16 00:09 → 2NO 08-16 17:11
PROVIDERS: ADMIT Internal Medicine; ATTEND Family Medicine
PROC: 031C0ZF Bypass Left Radial Artery to Lower Arm Vein, Open Approach (ICD-10-PCS; principal; 2020-08-17)
DX: I12.0 Hypertensive chronic kidney disease with stage 5 chronic kidney disease or end stage renal disease (principal); N18.6 End stage renal disease; E87.2 Acidosis; N39.0 Urinary tract infection, site not specified; N17.9 Acute kidney failure, unspecified; Z68.42 Body mass index [BMI] 45.0-49.9, adult; I16.0 Hypertensive urgency; D64.9 Anemia, unspecified; K21.9 Gastro-esophageal reflux disease without esophagitis; E03.9 Hypothyroidism, unspecified; E11.22 Type 2 diabetes mellitus with diabetic chronic kidney disease; E88.81 Metabolic syndrome and other insulin resistance; D63.1 Anemia in chronic kidney disease; E11.40 Type 2 diabetes mellitus with diabetic neuropathy, unspecified; E66.01 Morbid (severe) obesity due to excess calories; K43.2 Incisional hernia without obstruction or gangrene; Z79.899 Other long term (current) drug therapy
CPT/HCPCS: 36415; 36416; 36430; 71045; 76770; 80048; 80053; 81003; 81015; 82550; 83880; 84484; 84703; 85014; 85018; 85025; 85027; 86850; 86900; 86901; 87635; 93005; 93970; J0690; J1644; J1815; J1940; J2250; J2704; J2720; J3010; J7050; P9016; Q9967; S0020; U0003

== ENCOUNTER 2020-10-26 14:12 | Inpatient (IN) | payer OTHER ==
[2020-10-26 14:56] LABS: #Basophils 0.1 thou/uL (0.0-0.2); #Eosinphils 0.1 thou/uL (0.0-0.7); #Lymphocytes 2.1 thou/uL (1.20-3.40); #Monocytes 0.7 thou/uL (0.11-0.59); %Basophils 0.6 % (0.0-1.0); %Eosinophils 1.5 % (0.0-10.0); %Lymphocytes 22.9 % (21.0-51.0); Hemoglobin 7.1 g/dL (12.0-16.0); Mean Corpuscular HGB CONC 33.7 g/dL (32.0-36.0); Mean Corpuscular Hemoglobin 28.4 pg (27.0-31.0); Mean Corpuscular Volume 84.3 fL (78.0-98.0); Mean Platelet Volume 6.2 fL (7.4-10.4); Platelet Count 320 thou/uL (130-400); RBC Distribution Width 13.5 % (11.5-14.5)
[2020-10-26 15:17] LABS: ALT (SGPT) 13 U/L (8-55); AST (SGOT) 10 U/L (5-34); Albumin 3.3 g/dL (3.5-5.0); Alkaline Phosphatase 68 U/L (40-110); Anion Gap 15 mmol/L (10-20); BUN (Urea Nitrogen) 65 mg/dL (7.0-18.7); Bilirubin, Total 0.2 mg/dL (0.2-1.2); Calc. Creatinine Clearance 0 mL/min (70-130); Calcium 7.9 mg/dL (7.8-10.44); Carbon Dioxide 16 mmol/L (22-29); Chloride 114 mmol/L (98-107); Globulin 2.8 g/dL (2.4-3.5); Glucose 138 mg/dL (70-105); Potassium 4.7 mmol/L (3.5-5.1); Protein, Total 6.1 g/dL (6.0-8.3); Sodium 140 mmol/L (136-145)
--- NOTE | 2020-10-26 16:52 | PDOC.HHP ---
Hospitalist HPI - History of Present Illness Anemia, Initiation of Dialysis History of Present Illness: Ms. Coronado is a 44-year-old female with past medical history of end-stage renal disease not yet on dialysis, hypertension, hyperlipidemia, hypothyroidism, type 2 diabetes mellitus, GERD who presents to the emergency room sent in by her cut off sawyer log for anemia and initiation of dialysis. Patient follows with Dr. Allan and reports that her hemoglobin level was low on recent outpatient CBC. Dr. Aponte would like to receive 1 unit of packed red blood cells and be admitted for dialysis initiation. Patient reports that she feels generally weak, but with no specific complaints. She denies shortness of breath, chest pain, palpitations. She denies abdominal pain, nausea vomiting diarrhea. She denies dizziness or numbness weakness paresthesias. Patient has had a fistula placed in August 2020 in the left wrist, which she reports her cut off sawyer log said should be used to first attempt at dialysis. Emergency room initial vital signs 183/66, 98.3, 100% on room air. H/H 7.1/21.7. WBC 9.0, platelets 320. BUN/CR 65/4.13. Sodium 140, potassium 4.7. Glucose 148. Patient admitted to hospitalist service for initiation of dialysis. Hospitalist ROS - Review of Systems Constitutional: reports: weakness. denies: fever, chills, sweats, malaise, other Eyes: denies: pain, vision change, conjunctivae inflammation, eyelid inflammation, redness, other ENT: denies: ear pain, ear discharge, nose pain, nose discharge, nose congestion, mouth pain, mouth swelling, throat pain, throat swelling, other Respiratory: denies: cough, dry, shortness of breath, hemoptysis, SOB with excertion, pleuritic pain, sputum, wheezing, other Cardiovascular: denies: chest pain, palpitations, orthopnea, paroxysmal noc. dyspnea, edema, light headedness, other Gastrointestinal: denies: nausea, vomiting, abdominal pain, diarrhea, constipation, melena, hematochezia, other Genitourinary: denies: dysuria, frequency, incontinence, hematuria, retention, other Musculoskeletal: denies: neck pain, shoulder pain, arm pain, back pain, hand pain, leg pain, foot pain, other Skin: denies: rash, lesions, kathy, bruising, other Neurological: denies: weakness, numbness, incoordination, change in speech, confusion, seizures, other - Medication Medications: Sodium bicarbonate Carvedilol Glipizide The past benign Atorvastatin Furosemide Level thyroxine Lisinopril Pantoprazole Nifedipine No known drug allergies Hospitalist History - Past Surgical History Other Surgical History: Surgical history includes Left ankle surgery Fistula creation in August 2020 in the left wrist - Family History Other Family History: Denies family history of cardiac disease or cancer - Social History Smoking Status: Never smoker Alcohol: reports: None Drugs: reports: none Living Situation: With Family Activity level: independent ambulation - Exam General Appearance: NAD, awake alert General - other findings: Pale Eye: PERRL, anicteric sclera ENT: normocephalic atraumatic, no oropharyngeal lesions, moist mucosa Neck: supple, symmetric, no JVD, no thyromegaly, no lymphadenopathy, no carotid bruit Heart: RRR, no murmur, no gallops, no rubs, normal peripheral pulses Respiratory: CTAB, no wheezes, no rales, no ronchi, normal chest expansion, no tachypnea, normal percussion Gastrointestinal: soft, non-tender, non-distended, normal bowel sounds, no palpable masses, no hepatomegaly, no splenomegaly, no bruit Extremities: 1+ LE edema Skin: normal turgor, no lesions, no rashes Neurological: cranial nerve grossly intact, normal sensation to touch, no we akness, no focal deficits, no new deficit Musculoskeletal: normal tone, normal strength, no muscle wasting Psychiatric: normal affect, normal behavior, A&O x 3 Hospitalist Results - Labs Result Diagrams: 10/29/20 03:09 10/29/20 03:09 Lab results: WBC 9.0 thou/uL (4.8-10.8) 10/26/20 14:40 Hgb 7.1 g/dL (12.0-16.0) L 10/26/20 14:40 Hct 21.1 % (36.0-47.0) L 10/26/20 14:40 MCV 84.3 fL (78.0-98.0) 10/26/20 14:40 Plt Count 320 thou/uL (130-400) 10/26/20 14:40 Neutrophils % 67.0 % (42.0-75.0) 10/26/20 14:40 Sodium 140 mmol/L (136-145) 10/26/20 14:40 Potassium 4.7 mmol/L (3.5-5.1) 10/26/20 14:40 Chloride 114 mmol/L (98-107) H 10/26/20 14:40 Carbon Dioxide 16 mmol/L (22-29) L 10/26/20 14:40 BUN 65 mg/dL (7.0-18.7) H 10/26/20 14:40 Creatinine 4.13 mg/dL (0.6-1.1) H 10/26/20 14:40 Glucose 138 mg/dL (70-105) H 10/26/20 14:40 Calcium 7.9 mg/dL (7.8-10.44) 10/26/20 14:40 Total Bilirubin 0.2 mg/dL (0.2-1.2) 10/26/20 14:40 AST 10 U/L (5-34) 10/26/20 14:40 ALT 13 U/L (8-55) 10/26/20 14:40 Alkaline Phosphatase 68 U/L (40-110) 10/26/20 14:40 Serum Total Protein 6.1 g/dL (6.0-8.3) 10/26/20 14:40 Albumin 3.3 g/dL (3.5-5.0) L 10/26/20 14:40 Hospitalist H&P A/P - Plan Plan: End-stage renal disease 44-year-old female with past medical history of end-stage renal disease, sent in by cut off sawyer log for initiation of dialysis. Patient follows with Dr. Manrique. Fistula in place to left wrist with palpable thrill. BUN/CR 65/4.13. Potassium 4.7, sodium 140. Patient has significant social economic barriers to care as she does not currently have insurance. Will consult social work and case management for further recommendation and available resources for patient. Plan Consult nephrology for initiation of dialysis Case management/social work consult Anemia of chronic disease Anemia of chronic disease secondary to end-stage renal disease. H/H 7.1/21.7. Patient hemoglobin low as an outpatient around 6. Patient with generalized weakness and appears pale. Will administer 1 unit of packed red blood cells and continue to trend H&H. Consult nephrology for question initiation of EPO. Plan 1 unit packed red blood cells Trend H&H Transfuse for hemoglobin less than 7, symptomatic anemia Type 2 diabetes mellitus History of type 2 diabetes mellitus on home glipizide. Will continue home glipiz ankush at 1/2 dose, ISS and ACHS glucose checks. Hypertension We will continue home carvedilol, lisinopril, nifedipine. Hyperlipidemia We will continue home statin GERD Continue home pantoprazole Hypothyroidism We will continue home levothyroxine DVT Prophylaxis: SCDs FULL CODE Case discussed with attending physician, Dr. Coleman.
[2020-10-26] MEDS ORDERED: Acetaminophen 650 MG Suppository PR PRN (16:58)
[2020-10-26] MEDS ORDERED: Dextrose 5% in Water 1,000 ML IV PRN (17:03)
[2020-10-26] MEDS ORDERED: Insulin Regular 300 UNITS/3 ML VIAL SC PRN (17:03)
[2020-10-26] MEDS ORDERED: Dextrose 50% Abboject 50 ML SYRINGE SLOW IVP PRN (17:03)
--- NOTE | 2020-10-26 17:13 | CON ---
DATE OF CONSULTATION: REASON FOR CONSULTATION: Stage 6 chronic kidney disease for maintenance hemodialysis. HISTORY OF PRESENT ILLNESS: This is a very pleasant 44-year-old female, who has had progressive CKD and generalized swelling with significant anemia, hemoglobin ranging from 6 to 7, was sent to the emergency room for dialysis and elevated blood pressure. The patient at this time denies any nausea, vomiting, or chest pain. PAST MEDICAL HISTORY: Significant for stage 5 chronic kidney disease, hypertension, anemia, diabetes mellitus, GERD, hypothyroidism, morbid obesity. SOCIAL HISTORY: No alcohol or drug use. FAMILY HISTORY: Negative for ESRD. ALLERGIES: REVIEWED. MEDICATIONS: Home medications, list reviewed. Hospital medications, list reviewed. REVIEW OF SYSTEMS: 15-point review of system was performed, negative except for positives noted above. HEENT: Eyes intact, no diplopia. Ears: No hearing loss or earache. Nose: No discharge or bleeding. Chest: No cough or phlegm. Abdomen: No nausea or vomiting. Genitourinary: No hematuria. No Sawant catheter. Musculoskeletal: No low back pain. No joint swelling or pain. Neurological: No syncope. No seizures. Skin: No complaints of rash or itching. Psychiatric: No depression. Constitutional: No weight loss or loss of appetite. PHYSICAL EXAMINATION: General: The patient is awake, alert. Vital Signs: Afebrile. Pulse 80, breathing 16, blood pressure was 180/90. HEENT: Head normocephalic and atraumatic. Eyes intact, no ulcers. Nose intact, no ulcers. Ears intact, no ulcers. Neck: Supple. No JVD. Chest: Symmetrical and clear. Cardiovascular: Shows S1 and S2, no rub, no murmur. Gastrointestinal: Abdomen is soft, bowel sounds positive. Extremities: Show no edema or ulcers. Skin: Shows no rash or petechiae. Musculoskeletal: Shows no joint swelling or stiffness. Genitourinary: Shows no Sawant or CVA tenderness. Neurologic: Motor intact. Cranial nerves intact. LABORATORY DATA: Reviewed. ASSESSMENT AND PLAN: 1. Stage 6 chronic kidney disease, plan dialysis. 2. Hypertension, plan ultrafiltration. 3. Metabolic acidosis, plan dialysis. 4. Anemia, plan transfusion. Job ID: [id number]
[2020-10-26] MEDS: Atorvastatin Calcium 20 MG TAB PO SCH (21:35)
[2020-10-26 21:51] VITALS: BMI 37.2
[2020-10-26] MEDS: Acetaminophen 325 MG TAB PO PRN (22:00)
[2020-10-27 00:58] LABS: Hep B Surf Ag Non-Reactive S/CO (NonReactive)
[2020-10-27 04:16] LABS: SARS-CoV-2 PCR by NAA Not Detected (NotDetected)
[2020-10-27 04:59] LABS: #Eosinphils 0.1 thou/uL (0.0-0.7); #Lymphocytes 2.1 thou/uL (1.20-3.40); #Monocytes 0.7 thou/uL (0.11-0.59); #Neutrophils 4.2 thou/uL (1.40-6.50); %Basophils 0.6 % (0.0-1.0); %Eosinophils 1.7 % (0.0-10.0); %Lymphocytes 28.7 % (21.0-51.0); %Monocytes 9.5 % (0.0-10.0); %Neutrophils 59.5 % (42.0-75.0); Mean Corpuscular HGB CONC 33.2 g/dL (32.0-36.0); Mean Corpuscular Hemoglobin 27.5 pg (27.0-31.0); Mean Corpuscular Volume 82.9 fL (78.0-98.0); Mean Platelet Volume 6.5 fL (7.4-10.4); Platelet Count 274 thou/uL (130-400); RBC Distribution Width 14.5 % (11.5-14.5); Red Blood Cell (RBC) Count 2.53 mill/uL (4.20-5.40); White Blood Cell (WBC) Count 7.1 thou/uL (4.8-10.8)
[2020-10-27 05:24] LABS: Anion Gap 14 mmol/L (10-20); BUN (Urea Nitrogen) 54 mg/dL (7.0-18.7); Calc. Creatinine Clearance 43 mL/min (70-130); Calcium 7.8 mg/dL (7.8-10.44); Carbon Dioxide 19 mmol/L (22-29); Chloride 114 mmol/L (98-107); Glucose 96 mg/dL (70-105); Potassium 3.8 mmol/L (3.5-5.1); Sodium 143 mmol/L (136-145)
[2020-10-27] MEDS: Levothyroxine Sodium 50 MCG TAB PO SCH (05:30)
[2020-10-27] MEDS: NIFEdipine XL 90 MG TAB PO SCH (07:55)
[2020-10-27] MEDS: Carvedilol 25 MG TAB PO SCH ×2 (07:56→17:56)
[2020-10-27] MEDS: Pantoprazole 40 MG GRANULES PACKET PO SCH (07:56)
[2020-10-27] MEDS: Lisinopril 20 MG TAB PO SCH (07:56)
[2020-10-27] MEDS ORDERED: Prevnar 13-Val Conj/PF 0.5 ML SYRINGE IM ONE (09:00)
--- NOTE | 2020-10-27 11:28 | PRG ---
DATE OF SERVICE: 10/27/2020 SUBJECTIVE: 44-year-old female, being seen for end-stage renal disease. The patient denied any nausea, vomiting, or chest pain. PHYSICAL EXAMINATION: General: The patient is awake and alert. Vital Signs: Afebrile, pulse 88, breathing at 16, blood pressure 140/65. HEENT: Head normocephalic and atraumatic. Eyes intact, no ulcers. Nose intact, no ulcers. Ears intact, no ulcers. Neck: Supple. No JVD. Chest: Symmetrical and clear. Cardiovascular: Shows S1 and S2, no rub, no murmur. Gastrointestinal: Abdomen is soft, bowel sounds positive. Extremities: Show no edema or ulcers. Skin: Shows no rash or petechiae. Musculoskeletal: Shows no joint swelling or stiffness. Genitourinary: Shows no Sawant or CVA tenderness. Neurologic: Motor intact. Cranial nerves intact. LABORATORY DATA: Hemoglobin 7. ASSESSMENT: 1. Stage 3 chronic kidney disease. Plan, dialysis. 2. Hypertension, stable. 3. Anemia, stable. Medication based on GFR appropriate for anemia. We will do dialysis and give 1 unit of packed red blood cells with dialysis. Job ID: [id number]
--- NOTE | 2020-10-27 14:47 | PDOC.HOSPP ---
- Subjective Encounter Date: 10/27/20 Encounter Time: 14:45 Subjective: Ms. Coronado is a 44-year-old woman who was admitted to the hospital to initiate dialysis. She has suffered from chronic kidney disease and is now at the point that she will require dialysis. Nephrology has seen and dialyze her. She is anemic and has received a unit of packed red cells. Her hemoglobin remains very low at 7.1. I suspect this is secondary to the chronic kidney disease. On exam she does look very pale. We will proceed to dialysis today and will give her an extra unit of packed red cells. - Objective Vital Signs & Weight: Vital Signs (12 hours) Temp Pulse Resp BP Pulse Ox 10/27/20 11:25 97.8 F 82 16 134/63 96 10/27/20 08:05 98.8 F 85 16 174/64 H 97 10/27/20 04:30 98.4 F 97 18 174/77 H 94 L Weight Admit Weight 266 lb 14.4 oz Weight 266 lb 14.4 oz I&O: 10/26/20 10/27/20 10/28/20 06:59 06:59 06:59 Intake Total 720 Balance 720 Result Diagrams: 10/27/20 04:09 10/27/20 04:09 Additional Labs: Accuchecks 10/27/20 10/27/20 10/26/20 10:42 05:49 20:36 POC Glucose 149 H 89 66 L Radiology Reviewed by me: Yes EKG Reviewed by me: Yes Hospitalist ROS - Review of Systems Constitutional: reports: weakness Gastrointestinal: reports: nausea Neurological: reports: weakness - Medication Medications: Active Medications Generic Name Dose Route Start Last Admin Trade Name Freq PRN Reason Stop Dose Admin Acetaminophen 650 mg 10/26/20 16:58 10/26/20 22:00 Acetaminophen 325 Mg Tab PO 650 mg Q4H PRN Administration Headache/Fever/Mild Pain (1-3) Atorvastatin Calcium 20 mg 10/26/20 21:00 10/26/20 21:35 Atorvastatin Calcium 20 Mg Tab PO 20 mg QPM JASON Administration Carvedilol 25 mg 10/27/20 08:00 10/27/20 07:56 Carvedilol 25 Mg Tab PO 25 mg BID-WM JASON Administration Glipizide 5 mg 10/27/20 08:00 10/27/20 07:56 Glipizide Xl 5 Mg Tablet PO 5 mg QAM-WM JASON Administration Levothyroxine Sodium 50 mcg 10/27/20 06:00 10/27/20 05:30 Levothyroxine Sodium 50 Mcg Tab PO 50 mcg 0600 JASON Administration Lisinopril 20 mg 10/27/20 09:00 10/27/20 07:56 Lisinopril 20 Mg Tab PO 20 mg DAILY JASON Administration Nifedipine 90 mg 10/27/20 09:00 10/27/20 07:55 Nifedipine Xl 90 Mg Tab PO 90 mg DAILY JASON Administration Pantoprazole Sodium 40 mg 10/27/20 09:00 10/27/20 07:56 Pantoprazole 40 Mg Granules Packet PO 40 mg DAILY JASON Administration - Exam General Appearance: awake alert, ill appearing Eye: PERRL, anicteric sclera ENT: normocephalic atraumatic, no oropharyngeal lesions Neck: supple, symmetric, no JVD Heart: RRR, no murmur, no gallops Respiratory: CTAB, no wheezes Gastrointestinal: soft, non-tender, non-distended, normal bowel sounds, no hepatomegaly Extremities: no cyanosis, no clubbing, no edema Skin: normal turgor Neurological: cranial nerve grossly intact, normal sensation to touch, no w eakness Musculoskeletal: normal tone, normal strength Psychiatric: normal affect, normal behavior, A&O x 3, oriented to person Hosp A/P (1) Anemia due to chronic kidney disease Code(s): N18.9 - CHRONIC KIDNEY DISEASE, UNSPECIFIED; D63.1 - ANEMIA IN CHRONIC KIDNEY DISEASE Status: Acute Qualifiers: Chronic kidney disease stage: stage 5, not on chronic dialysis Qualified Code(s): N18.5 - Chronic kidney disease, stage 5; D63.1 - Anemia in chronic kidney disease Plan: Dialysis has been started. (2) End stage renal disease Code(s): N18.6 - END STAGE RENAL DISEASE Status: Acute Plan: Dialysis has been initiated. Defer to financial consultant. (3) Hypertensive urgency Code(s): I16.0 - HYPERTENSIVE URGENCY Status: Acute Plan: Blood pressure seems a little bit better. - Plan old records reviewed/req, PT/OT, out of bed/ambulate 10/27/2020. We will continue dialysis in-house. I will discuss with nephrology about timing of outpatient dialysis and hopefully get case management to help set these up.
[2020-10-27] MEDS: Acetaminophen 325 MG TAB PO PRN (18:34)
[2020-10-27] MEDS ORDERED: Amlodipine 5 MG TAB PO SCH (20:15)
[2020-10-27] MEDS: Atorvastatin Calcium 20 MG TAB PO SCH (21:07)
[2020-10-27] MEDS ORDERED: hydrALAZINE 20 MG/ML VIAL SLOW IVP SCH (23:59)
[2020-10-28] MEDS ORDERED: hydrALAZINE 20 MG/ML VIAL SLOW IVP PRN (01:19)
[2020-10-28 04:01] LABS: #Eosinphils 0.1 thou/uL (0.0-0.7); #Lymphocytes 1.8 thou/uL (1.20-3.40); #Monocytes 0.8 thou/uL (0.11-0.59); #Neutrophils 4.9 thou/uL (1.40-6.50); %Basophils 0.5 % (0.0-1.0); %Eosinophils 1.7 % (0.0-10.0); %Lymphocytes 23.8 % (21.0-51.0); %Monocytes 10.2 % (0.0-10.0); %Neutrophils 63.8 % (42.0-75.0); Hemoglobin 8.3 g/dL (12.0-16.0); Mean Corpuscular HGB CONC 33.4 g/dL (32.0-36.0); Mean Corpuscular Hemoglobin 27.6 pg (27.0-31.0); Mean Corpuscular Volume 82.7 fL (78.0-98.0); Mean Platelet Volume 6.4 fL (7.4-10.4); Platelet Count 287 thou/uL (130-400); RBC Distribution Width 14.4 % (11.5-14.5); Red Blood Cell (RBC) Count 2.99 mill/uL (4.20-5.40); White Blood Cell (WBC) Count 7.7 thou/uL (4.8-10.8)
[2020-10-28 04:17] LABS: Anion Gap 12 mmol/L (10-20); BUN (Urea Nitrogen) 43 mg/dL (7.0-18.7); Calc. Creatinine Clearance 45 mL/min (70-130); Calcium 7.9 mg/dL (7.8-10.44); Carbon Dioxide 24 mmol/L (22-29); Chloride 108 mmol/L (98-107); Glucose 108 mg/dL (70-105); Potassium 4.2 mmol/L (3.5-5.1); Sodium 140 mmol/L (136-145)
[2020-10-28] MEDS: Levothyroxine Sodium 50 MCG TAB PO SCH (05:50)
[2020-10-28] MEDS: NIFEdipine XL 90 MG TAB PO SCH (07:50)
[2020-10-28] MEDS: Pantoprazole 40 MG GRANULES PACKET PO SCH (07:51)
[2020-10-28] MEDS: Carvedilol 25 MG TAB PO SCH ×2 (07:51→17:33)
[2020-10-28] MEDS: Lisinopril 20 MG TAB PO SCH (07:51)
[2020-10-28] MEDS: Acetaminophen 325 MG TAB PO PRN (07:51)
--- NOTE | 2020-10-28 14:27 | PDOC.HOSPP ---
- Subjective Encounter Date: 10/28/20 Encounter Time: 14:27 Subjective: She got 1 unit of packed red cells and her hemoglobin has improved to 8.3. Will defer to nephrology about plan for further dialysis. She likely is going to need outpatient dialysis placement. - Objective Vital Signs & Weight: Vital Signs (12 hours) Temp Pulse Resp BP BP Pulse Ox 10/28/20 11:25 98.3 F 83 16 126/60 97 10/28/20 07:25 98.5 F 85 16 175/78 H 96 10/28/20 04:00 98.2 F 90 16 178/60 H 98 Weight Admit Weight 266 lb 14.4 oz Weight 266 lb 14.4 oz I&O: 10/27/20 10/28/20 10/29/20 06:59 06:59 06:59 Intake Total 720 Balance 720 Result Diagrams: 10/29/20 03:09 10/29/20 03:09 Additional Labs: Accuchecks 10/28/20 10/28/20 10/27/20 10:11 05:59 19:55 POC Glucose 126 H 91 110 H 10/27/20 18:05 POC Glucose 103 H Radiology Reviewed by me: Yes EKG Reviewed by me: Yes Hospitalist ROS - Review of Systems Constitutional: reports: weakness Gastrointestinal: reports: nausea Neurological: reports: weakness - Medication Medications: Active Medications Generic Name Dose Route Start Last Admin Trade Name Freq PRN Reason Stop Dose Admin Acetaminophen 650 mg 10/26/20 16:58 10/28/20 07:51 Acetaminophen 325 Mg Tab PO 650 mg Q4H PRN Administration Headache/Fever/Mild Pain (1-3) Atorvastatin Calcium 20 mg 10/26/20 21:00 10/27/20 21:07 Atorvastatin Calcium 20 Mg Tab PO 20 mg QPM JASON Administration Carvedilol 25 mg 10/27/20 08:00 10/28/20 07:51 Carvedilol 25 Mg Tab PO 25 mg BID-WM JASON Administration Glipizide 5 mg 10/27/20 08:00 10/28/20 07:51 Glipizide Xl 5 Mg Tablet PO 5 mg QAM-WM JASON Administration Levothyroxine Sodium 50 mcg 10/27/20 06:00 10/28/20 05:50 Levothyroxine Sodium 50 Mcg Tab PO 50 mcg 0600 JASON Administration Lisinopril 20 mg 10/27/20 09:00 10/28/20 07:51 Lisinopril 20 Mg Tab PO 20 mg DAILY JASON Administration Nifedipine 90 mg 10/27/20 09:00 10/28/20 07:50 Nifedipine Xl 90 Mg Tab PO 90 mg DAILY JASON Administration Pantoprazole Sodium 40 mg 10/27/20 09:00 10/28/20 07:51 Pantoprazole 40 Mg Granules Packet PO 40 mg DAILY JASON Administration - Exam General Appearance: NAD, awake alert Eye: PERRL ENT: normocephalic atraumatic Neck: supple Heart: RRR Gastrointestinal: soft Neurological: cranial nerve grossly intact Psychiatric: normal affect Hosp A/P (1) Anemia due to chronic kidney disease Code(s): N18.9 - CHRONIC KIDNEY DISEASE, UNSPECIFIED; D63.1 - ANEMIA IN CHRONIC KIDNEY DISEASE Status: Acute Qualifiers: Chronic kidney disease stage: stage 5, not on chronic dialysis Qualified Code(s): N18.5 - Chronic kidney disease, stage 5; D63.1 - Anemia in chronic kidney disease (2) End stage renal disease Code(s): N18.6 - END STAGE RENAL DISEASE Status: Acute (3) Hypertensive urgency Code(s): I16.0 - HYPERTENSIVE URGENCY Status: Acute - Plan old records reviewed/req 10/27/2020. We will continue dialysis in-house. I will discuss with nephrology about timing of outpatient dialysis and hopefully get case management to help set these up.
[2020-10-28] MEDS: Bacitracin 1 PK TOP SCH ×2 (15:03→21:28)
--- NOTE | 2020-10-28 16:25 | PRG ---
DATE OF SERVICE: 10/28/2020 SUBJECTIVE: A 44-year-old female, being seen for end-stage renal disease. The patient denied any nausea, vomiting, or chest pain. PHYSICAL EXAMINATION: GENERAL: The patient is awake and alert. VITAL SIGNS: Afebrile, pulse 75, breathing at 16, blood pressure 126/60. HEENT: Head normocephalic and atraumatic. Eyes intact, no ulcers. Nose intact, no ulcers. Ears intact, no ulcers. NECK: Supple. No JVD. CHEST: Symmetrical and clear. CARDIOVASCULAR: Shows S1 and S2, no rub, no murmur. GASTROINTESTINAL: Abdomen is soft, bowel sounds positive. EXTREMITIES: Show no edema or ulcers. SKIN: Shows no rash or petechiae. MUSCULOSKELETAL: Shows no joint swelling or stiffness. GENITOURINARY: Shows no Sawant or CVA tenderness. NEUROLOGIC: Motor intact. Cranial nerves intact. LABORATORY DATA: Reviewed. ASSESSMENT AND PLAN: 1. Stage 6 chronic kidney disease. Plan dialysis tomorrow. 2. Hypertension, stable. 3. Anemia, stable. Medication based on GFR appropriate. Discharge planning is in progress. Job ID: [id number]
[2020-10-28] MEDS: HYDROcodone/Acetaminophen 5/325 mg Tablet PO PRN (21:27)
[2020-10-28] MEDS: Atorvastatin Calcium 20 MG TAB PO SCH (21:27)
[2020-10-29 04:34] LABS: #Eosinphils 0.1 thou/uL (0.0-0.7); #Lymphocytes 1.9 thou/uL (1.20-3.40); #Monocytes 0.7 thou/uL (0.11-0.59); #Neutrophils 4.4 thou/uL (1.40-6.50); %Basophils 0.6 % (0.0-1.0); %Eosinophils 1.9 % (0.0-10.0); %Monocytes 10.2 % (0.0-10.0); %Neutrophils 61.3 % (42.0-75.0); Hemoglobin 8.1 g/dL (12.0-16.0); Mean Corpuscular HGB CONC 33.3 g/dL (32.0-36.0); Mean Corpuscular Hemoglobin 27.8 pg (27.0-31.0); Mean Corpuscular Volume 83.3 fL (78.0-98.0); Mean Platelet Volume 6.6 fL (7.4-10.4); Platelet Count 258 thou/uL (130-400); RBC Distribution Width 14.2 % (11.5-14.5); White Blood Cell (WBC) Count 7.2 thou/uL (4.8-10.8)
[2020-10-29 04:50] LABS: Anion Gap 14 mmol/L (10-20); BUN (Urea Nitrogen) 45 mg/dL (7.0-18.7); Calc. Creatinine Clearance 41 mL/min (70-130); Calcium 7.9 mg/dL (7.8-10.44); Carbon Dioxide 21 mmol/L (22-29); Chloride 109 mmol/L (98-107); Glucose 132 mg/dL (70-105); Potassium 3.9 mmol/L (3.5-5.1); Sodium 140 mmol/L (136-145)
[2020-10-29] MEDS: Levothyroxine Sodium 50 MCG TAB PO SCH (05:52)
[2020-10-29] MEDS: Lisinopril 20 MG TAB PO SCH (08:04)
[2020-10-29] MEDS: Carvedilol 25 MG TAB PO SCH ×2 (08:04→16:44)
[2020-10-29] MEDS: NIFEdipine XL 90 MG TAB PO SCH (08:05)
[2020-10-29] MEDS: Pantoprazole 40 MG GRANULES PACKET PO SCH (08:05)
[2020-10-29] MEDS: Bacitracin 1 PK TOP SCH ×3 (08:06→22:13)
[2020-10-29] MEDS ORDERED: Epoetin (ESRD) 20,000 UNITS/ML IVP SCH (11:15)
[2020-10-29] MEDS: HumaLOG 300 UNITS/3 ML VIAL SC PRN (11:54)
[2020-10-29] MEDS ORDERED: EPOETIN ALFA-EPBX (ESRD) 10,000 UNIT/ML VIAL IVP SCH (12:00)
[2020-10-29] MEDS: Acetaminophen 325 MG TAB PO PRN ×2 (14:04→22:13)
--- NOTE | 2020-10-29 16:51 | PDOC.HOSPP ---
- Subjective Encounter Date: 10/29/20 Encounter Time: 16:30 Subjective: Patient seen and evaluated. She has no concerns today. She is pending outpatient dialysis set up. Case management is helping to arrange for this. - Objective Vital Signs & Weight: Vital Signs (12 hours) Temp Pulse Resp BP BP Pulse Ox 10/29/20 15:36 98.3 F 97 15 158/50 H 96 10/29/20 11:03 97.9 F 78 12 130/62 97 10/29/20 07:50 98.6 F 84 16 184/72 H 98 Weight Admit Weight 266 lb 14.4 oz Weight 266 lb 14.4 oz Result Diagrams: 10/29/20 03:09 10/29/20 03:09 Additional Labs: Accuchecks 10/29/20 10/29/20 10/28/20 10:45 06:04 20:43 POC Glucose 175 H 111 H 179 H 10/28/20 17:05 POC Glucose 132 H Radiology Reviewed by me: Yes EKG Reviewed by me: Yes Hospitalist ROS - Review of Systems Constitutional: reports: weakness, malaise Gastrointestinal: reports: nausea Neurological: reports: weakness - Medication Medications: Active Medications Generic Name Dose Route Start Last Admin Trade Name Freq PRN Reason Stop Dose Admin Acetaminophen 650 mg 10/26/20 16:58 10/29/20 14:04 Acetaminophen 325 Mg Tab PO 650 mg Q4H PRN Administration Headache/Fever/Mild Pain (1-3) Hydrocodone Bitart/Acetaminophen 1 tab 10/28/20 11:39 10/28/20 21:27 Hydrocodone/Acetaminophen 5/325 Mg Tablet PO 1 tab Q4H PRN Administration Mild Pain (1-3) Atorvastatin Calcium 20 mg 10/26/20 21:00 10/28/20 21:27 Atorvastatin Calcium 20 Mg Tab PO 20 mg QPM JASON Administration Bacitracin 1 pk 10/28/20 15:00 10/29/20 08:06 Bacitracin 1 Pk TOP Not Given TID JASON Carvedilol 25 mg 10/27/20 08:00 10/29/20 08:04 Carvedilol 25 Mg Tab PO 25 mg BID-WM JASON Administration Glipizide 5 mg 10/27/20 08:00 10/29/20 08:04 Glipizide Xl 5 Mg Tablet PO 5 mg QAM-WM JASON Administration Hydralazine HCl 10 mg 10/28/20 01:19 10/29/20 00:53 Hydralazine 20 Mg/Ml Vial SLOW IVP 10 mg Q4H PRN Administration SBP Greater Than 180 Insulin Human Lispro 0 units 10/26/20 17:03 10/29/20 11:54 Humalog 300 Units/3 Ml Vial SC 2 unit .MILD SLIDING SCALE PRN Administration Mild Correctional Scale Levothyroxine Sodium 50 mcg 10/27/20 06:00 10/29/20 05:52 Levothyroxine Sodium 50 Mcg Tab PO 50 mcg 0600 JASON Administration Nifedipine 90 mg 10/27/20 09:00 10/29/20 08:05 Nifedipine Xl 90 Mg Tab PO 90 mg DAILY JASON Administration Pantoprazole Sodium 40 mg 10/27/20 09:00 10/29/20 08:05 Pantoprazole 40 Mg Granules Packet PO 40 mg DAILY JASON Administration - Exam General Appearance: NAD, awake alert Eye: PERRL, anicteric sclera ENT: normocephalic atraumatic, no oropharyngeal lesions Neck: supple, symmetric Heart: RRR, no murmur, no gallops Respiratory: CTAB, no wheezes, no rales, no ronchi, normal chest expansion Gastrointestinal: soft, non-tender, non-distended Neurological: cranial nerve grossly intact Psychiatric: normal affect Hosp A/P (1) Anemia due to chronic kidney disease Code(s): N18.9 - CHRONIC KIDNEY DISEASE, UNSPECIFIED; D63.1 - ANEMIA IN CHRONIC KIDNEY DISEASE Status: Acute Qualifiers: Chronic kidney disease stage: stage 5, not on chronic dialysis Qualified Code(s): N18.5 - Chronic kidney disease, stage 5; D63.1 - Anemia in chronic kidney disease (2) End stage renal disease Code(s): N18.6 - END STAGE RENAL DISEASE Status: Acute (3) Hypertensive urgency Code(s): I16.0 - HYPERTENSIVE URGENCY Status: Acute - Plan 10/27/2020. We will continue dialysis in-house. I will discuss with nephrology about timing of outpatient dialysis and hopefully get case management to help set these up. 10/29/2020. She is pending outpatient dialysis set up. Continue current care.
--- NOTE | 2020-10-29 17:57 | PRG ---
DATE OF SERVICE: 10/29/2020 SUBJECTIVE: Patient was seen and examined at bedside and overnight events noted. Patient denies shortness of breath or cramps or chest pain or palpitation. No Nausea or vomiting or diarrhea or fever or chills. OBJECTIVE: GENERAL: This is a well-built female, in no apparent distress. VITAL SIGNS: Temperature 97.9, pulse 78, respiratory rate , blood pressure 130/62. Musculoskeletal : No tenderness, No edema HEENT: Atraumatic normocephalic Neck: Supple Cardiovascular: S1S2 heard, Rate and rhythm regular Respiratory: Clear to auscultation Gastrointestinal: Abdomen is soft Dermatologic : No skin rash Neurologic: Alert and awake and oriented X3 No focal neurologic deficits. Moving all the extremities. Psychiatric: Mood and affect normal LABORATORY DATA: Potassium 3.9, BUN is 45, and creatinine is 3.6. ASSESSMENT AND PLAN: 1. End-stage renal disease. Continue dialysis. Follow with Case Management for outpatient placement. 2. Anemia of chronic disease, status post transfusion. 3. Edema. 4. Hypertension. 5. Continue on dialysis as tolerated. Follow with Case Management for outpatient placement. Job ID: [id number] MTDD
[2020-10-29] MEDS ORDERED: Tuberculin PPD 0.1 ML VIAL I-DERMAL SCH (21:00)
[2020-10-29] MEDS: NIFEdipine XL 60 MG TAB PO SCH (22:12)
[2020-10-29] MEDS: Atorvastatin Calcium 20 MG TAB PO SCH (22:13)
[2020-10-30] MEDS: Levothyroxine Sodium 50 MCG TAB PO SCH (05:25)
[2020-10-30] MEDS: Carvedilol 25 MG TAB PO SCH ×2 (08:07→17:05)
[2020-10-30] MEDS: Pantoprazole 40 MG GRANULES PACKET PO SCH (08:07)
[2020-10-30] MEDS: NIFEdipine XL 60 MG TAB PO SCH ×2 (08:07→21:54)
[2020-10-30] MEDS: Bacitracin 1 PK TOP SCH ×3 (08:08→21:55)
[2020-10-30] MEDS: Acetaminophen 325 MG TAB PO PRN ×2 (08:13→23:53)
[2020-10-30] MEDS: HYDROcodone/Acetaminophen 5/325 mg Tablet PO PRN (14:28)
--- NOTE | 2020-10-30 15:40 | PDOC.HOSPP ---
- Subjective Encounter Date: 10/30/20 Encounter Time: 15:40 Subjective: She is pending outpatient dialysis placement. - Objective Vital Signs & Weight: Vital Signs (12 hours) Temp Pulse Resp BP Pulse Ox 10/30/20 08:00 97.8 F 81 20 144/56 H 98 Weight Admit Weight 266 lb 14.4 oz Weight 266 lb 14.4 oz I&O: 10/29/20 10/30/20 10/31/20 06:59 06:59 06:59 Intake Total 1450 Balance 1450 Result Diagrams: 10/29/20 03:09 10/29/20 03:09 Additional Labs: Accuchecks 10/30/20 10/30/20 10/29/20 11:08 05:32 20:29 POC Glucose 122 H 123 H 142 H 10/29/20 16:30 POC Glucose 125 H Radiology Reviewed by me: Yes EKG Reviewed by me: Yes Hospitalist ROS - Review of Systems Constitutional: reports: weakness, malaise Gastrointestinal: reports: nausea - Medication Medications: Active Medications Generic Name Dose Route Start Last Admin Trade Name Freq PRN Reason Stop Dose Admin Acetaminophen 650 mg 10/26/20 16:58 10/30/20 08:13 Acetaminophen 325 Mg Tab PO 650 mg Q4H PRN Administration Headache/Fever/Mild Pain (1-3) Hydrocodone Bitart/Acetaminophen 1 tab 10/28/20 11:39 10/30/20 14:28 Hydrocodone/Acetaminophen 5/325 Mg Tablet PO 1 tab Q4H PRN Administration Mild Pain (1-3) Atorvastatin Calcium 20 mg 10/26/20 21:00 10/29/20 22:13 Atorvastatin Calcium 20 Mg Tab PO 20 mg QPM JASON Administration Bacitracin 1 pk 10/28/20 15:00 10/30/20 14:29 Bacitracin 1 Pk TOP 1 pk TID JASON Administration Carvedilol 25 mg 10/27/20 08:00 10/30/20 08:07 Carvedilol 25 Mg Tab PO 25 mg BID-WM JASON Administration Epoetin Frankie-epbx 10,000 unit 10/29/20 12:00 10/29/20 17:45 Epoetin Frankie-Epbx (Esrd) 10,000 Unit/Ml Vial IVP Not Given MoWeFr JASON Glipizide 5 mg 10/27/20 08:00 10/30/20 08:07 Glipizide Xl 5 Mg Tablet PO 5 mg QAM-WM JASON Administration Hydralazine HCl 10 mg 10/28/20 01:19 10/29/20 00:53 Hydralazine 20 Mg/Ml Vial SLOW IVP 10 mg Q4H PRN Administration SBP Greater Than 180 Insulin Human Lispro 0 units 10/26/20 17:03 10/29/20 11:54 Humalog 300 Units/3 Ml Vial SC 2 unit .MILD SLIDING SCALE PRN Administration Mild Correctional Scale Levothyroxine Sodium 50 mcg 10/27/20 06:00 10/30/20 05:25 Levothyroxine Sodium 50 Mcg Tab PO 50 mcg 0600 JASON Administration Nifedipine 60 mg 10/29/20 21:00 10/30/20 08:07 Nifedipine Xl 60 Mg Tab PO 60 mg BID JASON Administration Pantoprazole Sodium 40 mg 10/27/20 09:00 10/30/20 08:07 Pantoprazole 40 Mg Granules Packet PO 40 mg DAILY JASON Administration - Exam General Appearance: NAD, awake alert Eye: PERRL ENT: normocephalic atraumatic, no oropharyngeal lesions Neck: supple, symmetric, no JVD, no thyromegaly Heart: RRR, no murmur, no gallops, no rubs, normal peripheral pulses Respiratory: CTAB, no wheezes, no rales, no ronchi, normal chest expansion Gastrointestinal: soft, non-tender, non-distended Neurological: cranial nerve grossly intact Hosp A/P (1) Anemia due to chronic kidney disease Code(s): N18.9 - CHRONIC KIDNEY DISEASE, UNSPECIFIED; D63.1 - ANEMIA IN CHRONIC KIDNEY DISEASE Status: Acute Qualifiers: Chronic kidney disease stage: on chronic dialysis Qualified Code(s): N18.6 - End stage renal disease; D63.1 - Anemia in chronic kidney disease; Z99.2 - Dependence on renal dialysis Plan: Case management helping to arrange for outpatient dialysis set up. (2) End stage renal disease Code(s): N18.6 - END STAGE RENAL DISEASE Status: Acute (3) Hypertensive urgency Code(s): I16.0 - HYPERTENSIVE URGENCY Status: Acute - Plan 10/27/2020. We will continue dialysis in-house. I will discuss with nephrology about timing of outpatient dialysis and hopefully get case management to help set these up. 10/29/2020. She is pending outpatient dialysis set up. Continue current care. 10/30/2020. No acute issues. Outpatient dialysis still being evaluated.
[2020-10-30] MEDS: HumaLOG 300 UNITS/3 ML VIAL SC PRN (17:05)
[2020-10-30 17:06] LABS: HBSAg Index 0.37 S/CO (0-0.99); Hep B Core Total Ab Non-Reactive (NonReactive); Hep B Core Total Index 0.18 S/CO (0-0.79); Hep B Surf Ag Non-Reactive S/CO (NonReactive)
[2020-10-30 17:07] LABS: HBSAB Concentration Less than 8.00 mIU/mL; Hep B Surf AB Non-Reactive (NonReactive); Hep C IgG Ab Non-Reactive (NonReactive); Hep C Index 0.13 S/CO (0-0.79)
--- NOTE | 2020-10-30 18:09 | PRG ---
DATE OF SERVICE: 10/30/2020 SUBJECTIVE: Patient was seen and examined at bedside and overnight events noted. Patient denies any shortness of breath or chest pain or palpitation. No history of nausea or vomiting or diarrhea or fever or chills or cramps. PHYSICAL EXAMINATION: GENERAL: This is a well-built female, in no apparent distress. VITAL SIGNS: Temperature 99, afebrile, pulse 82, respiratory rate at 19, blood pressure 138/52. HEENT: Atraumatic, normocephalic. Oral mucosa is moist. NECK: Supple. CARDIOVASCULAR: S1, S2 heard. Rate and rhythm regular. RESPIRATORY: Clear to auscultation. GASTROINTESTINAL: Abdomen is soft. MUSCULOSKELETAL: No tenderness. No edema. DERMATOLOGIC: No skin rash. NEUROLOGIC: Alert and awake and oriented x3. No focal neurologic deficits. Moving all the extremities. PSYCHIATRIC: Mood and affect normal. LABORATORY DATA: reviewed. ASSESSMENT AND PLAN: 1. End-stage renal disease. Continue dialysis as tolerated. 2. Edema. 3. Anemia of chronic disease. 4. History of hypertension. The patient was seen during dialysis today. We will recheck labs tomorrow to see what schedule she needs to be. Follow with Case Management for outpatient placement. Job ID: [id number] [facility]
[2020-10-30 18:40] LABS: Anion Gap 14 mmol/L (10-20); BUN (Urea Nitrogen) 28 mg/dL (7.0-18.7); Calc. Creatinine Clearance 50 mL/min (70-130); Carbon Dioxide 24 mmol/L (22-29); Chloride 104 mmol/L (98-107); Glucose 157 mg/dL (70-105); Potassium 3.8 mmol/L (3.5-5.1); Sodium 138 mmol/L (136-145)
[2020-10-30] MEDS: Atorvastatin Calcium 20 MG TAB PO SCH (21:54)
[2020-10-31] MEDS: Levothyroxine Sodium 50 MCG TAB PO SCH (07:49)
[2020-10-31] MEDS: Carvedilol 25 MG TAB PO SCH ×2 (09:55→16:03)
[2020-10-31] MEDS: Pantoprazole 40 MG GRANULES PACKET PO SCH (09:55)
[2020-10-31] MEDS: NIFEdipine XL 60 MG TAB PO SCH ×2 (09:55→20:25)
[2020-10-31] MEDS: Bacitracin 1 PK TOP SCH ×3 (09:56→20:28)
--- NOTE | 2020-10-31 12:06 | PRG ---
DATE OF SERVICE: 10/31/2020 SUBJECTIVE: Patient was seen and examined at bedside and overnight events noted. Patient denies any shortness of breath or chest pain or palpitation. No history of nausea or vomiting or diarrhea or fever or chills or cramps. OBJECTIVE: General: Well-built female, in no apparent distress. Vital Signs: Temperature 97.0, pulse 54, respiratory rate is 20, blood pressure 155/60. HEENT: Atraumatic, normocephalic. Oral mucosa is moist. NECK: Supple. CARDIOVASCULAR: S1, S2 heard. Rate and rhythm regular. RESPIRATORY: Clear to auscultation. GASTROINTESTINAL: Abdomen is soft. MUSCULOSKELETAL: No tenderness. No edema. DERMATOLOGIC: No skin rash. NEUROLOGIC: Alert and awake and oriented x3. No focal neurologic deficits. Moving all the extremities. PSYCHIATRIC: Mood and affect normal. LABORATORY DATA: No labs done today. ASSESSMENT AND PLAN: 1. End-stage renal disease. Continue dialysis. 2. Edema. 3. Anemia of chronic disease. We will continue on dialysis as tolerated. Job ID: [id number]
--- NOTE | 2020-10-31 12:11 | PRG ---
DATE OF SERVICE: 10/31/2020 SUBJECTIVE: Patient was seen and examined at bedside and overnight events noted. Patient denies any shortness of breath or chest pain or palpitation. No history of nausea or vomiting or diarrhea or fever or chills or cramps. OBJECTIVE: General: This is a well built female in no apparent distress. Vital Signs: Temperature 97.0. Heart rate 54. Respiratory rate 16. Blood pressure 155/60. HEENT: Atraumatic, normocephalic. Oral mucosa is moist. Neck: Supple. Cardiovascular: S1, S2 heard. Rate and rhythm regular. Respiratory: Clear to auscultation. Gastrointestinal: Abdomen is soft. Musculoskeletal: No tenderness. No edema. Dermatologic: No skin rash. Neurologic: Alert and awake and oriented x3. No focal neurologic deficits. Moving all the extremities. Psychiatric: Mood and affect normal. LABORATORY DATA: No labs. ASSESSMENT AND PLAN: 1. End-stage renal disease. Continue dialysis. 2. Anemia, on Epogen. 3. Edema. 4. History of hypertension. Follow up with caseworker protective services for outpatient placement. Continue dialysis as tolerated. Job ID: [id number]
[2020-10-31 12:18] LABS: Anion Gap 13 mmol/L (10-20); BUN (Urea Nitrogen) 33 mg/dL (7.0-18.7); Calc. Creatinine Clearance 40 mL/min (70-130); Calcium 7.9 mg/dL (7.8-10.44); Carbon Dioxide 24 mmol/L (22-29); Chloride 103 mmol/L (98-107); Glucose 148 mg/dL (70-105); Sodium 136 mmol/L (136-145)
--- NOTE | 2020-10-31 18:24 | PDOC.HOSPP ---
- Subjective Encounter Date: 10/31/20 Encounter Time: 18:23 Subjective: Patient continues to await outpatient dialysis set up. Case management continues to work on approval with insurance. She has no other acute issues. - Objective Vital Signs & Weight: Vital Signs (12 hours) Temp Pulse Resp BP BP Pulse Ox 10/31/20 15:09 98.6 F 80 16 158/65 H 98 10/31/20 12:05 97.8 F 77 16 146/72 H 99 10/31/20 09:55 81 10/31/20 08:10 97.7 F 84 16 155/60 H 96 Weight Admit Weight 266 lb 14.4 oz Weight 266 lb 14.4 oz I&O: 10/30/20 10/31/20 11/01/20 06:59 06:59 06:59 Intake Total 1450 1450 700 Output Total 2000 Balance 1450 -550 700 Result Diagrams: 10/29/20 03:09 10/31/20 11:20 Additional Labs: Accuchecks 10/31/20 10/31/20 10/31/20 16:23 10:33 05:52 POC Glucose 139 H 140 H 108 H 10/30/20 20:36 POC Glucose 149 H Radiology Reviewed by me: Yes EKG Reviewed by me: Yes Hospitalist ROS - Review of Systems Constitutional: reports: weakness Gastrointestinal: reports: nausea Neurological: reports: weakness - Medication Medications: Active Medications Generic Name Dose Route Start Last Admin Trade Name Freq PRN Reason Stop Dose Admin Acetaminophen 650 mg 10/26/20 16:58 10/30/20 23:53 Acetaminophen 325 Mg Tab PO 650 mg Q4H PRN Administration Headache/Fever/Mild Pain (1-3) Hydrocodone Bitart/Acetaminophen 1 tab 10/28/20 11:39 10/30/20 14:28 Hydrocodone/Acetaminophen 5/325 Mg Tablet PO 1 tab Q4H PRN Administration Mild Pain (1-3) Atorvastatin Calcium 20 mg 10/26/20 21:00 10/30/20 21:54 Atorvastatin Calcium 20 Mg Tab PO 20 mg QPM JASON Administration Bacitracin 1 pk 10/28/20 15:00 10/31/20 16:03 Bacitracin 1 Pk TOP 1 pk TID JASON Administration Carvedilol 25 mg 10/27/20 08:00 10/31/20 16:03 Carvedilol 25 Mg Tab PO 25 mg BID-WM JASON Administration Glipizide 5 mg 10/27/20 08:00 10/31/20 09:55 Glipizide Xl 5 Mg Tablet PO 5 mg QAM-WM JASON Administration Hydralazine HCl 10 mg 10/28/20 01:19 10/29/20 00:53 Hydralazine 20 Mg/Ml Vial SLOW IVP 10 mg Q4H PRN Administration SBP Greater Than 180 Insulin Human Lispro 0 units 10/26/20 17:03 10/30/20 17:05 Humalog 300 Units/3 Ml Vial SC 2 unit .MILD SLIDING SCALE PRN Administration Mild Correctional Scale Levothyroxine Sodium 50 mcg 10/27/20 06:00 10/31/20 07:49 Levothyroxine Sodium 50 Mcg Tab PO 50 mcg 0600 JASON Administration Nifedipine 60 mg 10/29/20 21:00 10/31/20 09:55 Nifedipine Xl 60 Mg Tab PO 60 mg BID JASON Administration Pantoprazole Sodium 40 mg 10/27/20 09:00 10/31/20 09:55 Pantoprazole 40 Mg Granules Packet PO 40 mg DAILY JASON Administration - Exam General Appearance: NAD, awake alert Eye: PERRL, anicteric sclera ENT: normocephalic atraumatic, no oropharyngeal lesions Neck: supple, symmetric, no JVD, no thyromegaly Heart: RRR, no murmur, no gallops, no rubs, normal peripheral pulses Respiratory: CTAB, no wheezes, no rales, no ronchi, normal chest expansion Gastrointestinal: soft, non-tender, non-distended, normal bowel sounds Neurological: cranial nerve grossly intact, normal sensation to touch Psychiatric: normal affect, normal behavior, A&O x 3 Hosp A/P (1) Anemia due to chronic kidney disease Code(s): N18.9 - CHRONIC KIDNEY DISEASE, UNSPECIFIED; D63.1 - ANEMIA IN CHRONIC KIDNEY DISEASE Status: Acute Qualifiers: Chronic kidney disease stage: on chronic dialysis Qualified Code(s): N18.6 - End stage renal disease; D63.1 - Anemia in chronic kidney disease; Z99.2 - Dependence on renal dialysis (2) End stage renal disease Code(s): N18.6 - END STAGE RENAL DISEASE Status: Acute (3) Hypertensive urgency Code(s): I16.0 - HYPERTENSIVE URGENCY Status: Acute - Plan old records reviewed/req, plan discussed w/ family, PT/OT, respiratory therapy, incentive spirometry 10/27/2020. We will continue dialysis in-house. I will discuss with nephrology about timing of outpatient dialysis and hopefully get case management to help set these up. 10/29/2020. She is pending outpatient dialysis set up. Continue current care. 10/30/2020. No acute issues. Outpatient dialysis still being evaluated.
[2020-10-31] MEDS: Acetaminophen 325 MG TAB PO PRN (20:25)
[2020-10-31] MEDS: Atorvastatin Calcium 20 MG TAB PO SCH (20:25)
[2020-10-31] MEDS ORDERED: READ PPD TEST SITE PO SCH (21:00)
[2020-11-01] MEDS: Levothyroxine Sodium 50 MCG TAB PO SCH (06:15)
[2020-11-01] MEDS ORDERED: EPOETIN ALFA-EPBX (ESRD) 10,000 UNIT/ML VIAL IVP SCH (11:24)
[2020-11-01] MEDS: Pantoprazole 40 MG GRANULES PACKET PO SCH (12:05)
[2020-11-01] MEDS: Carvedilol 25 MG TAB PO SCH ×2 (12:09→16:00)
[2020-11-01] MEDS: NIFEdipine XL 60 MG TAB PO SCH (12:09)
[2020-11-01] MEDS: Bacitracin 1 PK TOP SCH ×2 (12:09→15:39)
--- NOTE | 2020-11-01 12:12 | PRG ---
DATE OF SERVICE: 11/01/2020 SUBJECTIVE: Patient was seen and examined at bedside and overnight events noted. Patient denies any shortness of breath or chest pain or palpitation. No history of nausea or vomiting or diarrhea or fever or chills or cramps. OBJECTIVE: General: This is a well-built female, in no apparent distress. Vital Signs: Temperature 98.4, pulse 84, respiratory rate 16, blood pressure 160/74. HEENT: Atraumatic, normocephalic. Oral mucosa is moist. Neck: Supple. Cardiovascular: S1, S2 heard. Rate and rhythm regular. Respiratory: Clear to auscultation. Gastrointestinal: Abdomen is soft. Musculoskeletal: No tenderness. No edema. Dermatologic: No skin rash. Neurologic: Alert and awake and oriented x3. No focal neurologic deficits. Moving all the extremities. Psychiatric: Mood and affect normal. LABORATORY DATA: No labs done. ASSESSMENT AND PLAN: 1. End-stage renal disease, continue on hemodialysis. 2. Anemia. 3. Edema. 4. History of hypertension. Plan to continue on dialysis as tolerated. Job ID: [id number]
--- NOTE | 2020-11-01 15:08 | RAD ---
EXAM: CHEST ONE VIEW HISTORY: Shortness of breath COMPARISON: Clinical 31/10/2019 FINDINGS: Cardiac silhouette remains enlarged. The pulmonary vasculature is within normal limits. The lungs are clear. The osseous structures are intact. There is a curvilinear radiopaque density overlying the right upper quadrant. This could be related to overlying artifact or possibly secondary to drainage c atheter. Clinical correlation is suggested. IMPRESSION: 1. Incompletely imaged curvilinear bandlike radiopaque density overlying the right upper quadrant. Th is may be related to overlying artifact, but drainage catheter is a possibility. Clinical correlation is recommended. 2. Mild cardiomegaly. 3. No acute cardiopulmonary process.
--- NOTE | 2020-11-01 15:14 | PDOC.DS.DS ---
Provider - Provider Date of Admission: 10/29/20 11:10 Date of Discharge: 11/01/20 Admitting Provider: Nikhil Coleman MD Consultations: Nephrology Primary Care Physician: Son Valdez DO Course - Hospital Course Hospital Course: This is a 44-year-old female who was sent into the hospital to initiate dialysis. She appears to have a history of chronic kidney disease at least stage V that progressed to end-stage. He was seen by nephrology and this was initiated. It is felt that she will need ongoing dialysis going forward and she has been accepted at a facility on outpatient to continue her dialysis. Resuscitation Status: 10/26/20 16:58 Resuscitation Status Routine Co-Sign Provider: Resuscitation Status: FULL: Full Resuscitation - Labs Lab Results: 10/29/20 03:09 10/31/20 11:20 Abnormal Lab Results - Last 48 hrs 10/30/20 17:59: BUN 28 H, Creatinine 2.72 H 10/31/20 11:20: BUN 33 H, Creatinine 3.44 H - Physical Exam Vitals: Vital Signs (12 hours) Temp Pulse Resp BP BP Pulse Ox 11/01/20 13:04 80 142/64 H 11/01/20 12:32 98.3 F 84 16 183/79 H 99 11/01/20 07:49 98.4 F 85 16 167/74 H 97 11/01/20 03:48 98.5 F 80 18 179/78 H 97 Weight Admit Weight 266 lb 14.4 oz Weight 266 lb 14.4 oz Physical Exam: The patient was seen and examined on the day of discharge. Problem - Problem (1) Anemia due to chronic kidney disease Code(s): N18.9 - CHRONIC KIDNEY DISEASE, UNSPECIFIED; D63.1 - ANEMIA IN CHRONIC KIDNEY DISEASE Status: Acute Qualifiers: Chronic kidney disease stage: on chronic dialysis Qualified Code(s): N18.6 - End stage renal disease; D63.1 - Anemia in chronic kidney disease; Z99.2 - Dependence on renal dialysis (2) End stage renal disease Code(s): N18.6 - END STAGE RENAL DISEASE Status: Acute (3) Hypertensive urgency Code(s): I16.0 - HYPERTENSIVE URGENCY Status: Acute - Time spent with Patient (mins): 30 Plan - Discharge Medications Prescriptions: Carvedilol [Coreg] 25 mg PO BID #60 tab Home Medications: Medication Instructions Recorded Confirmed Type Atorvastatin Calcium [Lipitor] 20 mg PO QPM 08/16/20 10/26/20 History Furosemide 40 mg PO BID 08/16/20 10/26/20 History Levothyroxine Sodium [Euthyrox] 50 mcg PO QAM 08/16/20 10/26/20 History Lisinopril 20 mg PO DAILY 08/16/20 10/26/20 History Pantoprazole Sodium [Protonix] 40 mg PO DAILY 08/16/20 10/26/20 History Repaglinide 0.5 mg PO TID 08/16/20 10/26/20 History Vit D3-Vit K/Berberine/Hops 1 tablet PO DAILY 08/16/20 10/26/20 History [Ostera Tablet] glipiZIDE [glipiZIDE ER] 10 mg PO QAM-WM 08/16/20 10/26/20 History NIFEdipine [Procardia XL] 90 mg PO DAILY #90 tab 08/19/20 10/26/20 Rx traMADol HCl [Ultram] 50 mg PO Q4H PRN #20 tab 08/19/20 10/26/20 Rx Sodium Bicarbonate 650 mg PO BID 10/26/20 10/26/20 History Carvedilol [Coreg] 25 mg PO BID #60 tab 11/01/20 Rx Allergies: No Known Drug Allergies Allergy (Verified 08/18/20 23:00) - Discharge Instructions Activity:: Activity as Tolerated Nourishment:: Diabetic Diet, Renal Diet - Follow up Plan Referrals: [facility] [Other] (Scheduled outpatient dialysis will be on Mondays, Wednesdays, and Fridays. You are scheduled to be at the clinic by 2:00 pm, 11/02/20, to completed admission prior to dialysis treatment at 3:00 PM. Please bring two identifications and your insurance card.) Son Valdez DO [Primary Care Provider] - Nancy Davis MD [Active] - Disposition: HOME Quality - Care Measures CORE MEASURES:: N/A
[2020-11-01 15:17] VITALS: BP 140/63; TEMP 98.1
[2020-11-01] MEDS ORDERED: READ PPD TEST SITE PO SCH (21:00)
--- NOTE | 2020-11-21 12:46 | EKG ---
Test Reason : Blood Pressure : / mmHG Vent. Rate : 083 BPM Atrial Rate : 083 BPM P-R Int : 138 ms QRS Dur : 098 ms QT Int : 390 ms P-R-T Axes : 049 -22 031 degrees QTc Int : 458 ms Normal sinus rhythm Normal ECG Confirmed by MIMI SORENSON M.D. ([id number]), editorial cartoonist SAMIRA BOSWELL ([id number]) on 11/21/2020 12:46:18 PM Referred By: Confirmed By:MIMI SORENSON M.D.
== END 2020-11-01 18:35 | disposition home or self-care (01) | DRG 682 ==
LOC: ERS 14:12 → 2NO 16:33 → OBSVTOIN 10-29 11:10
PROVIDERS: ADMIT Internal Medicine; ATTEND Hospitalist
PROC: 5A1D70Z Performance of Urinary Filtration, Intermittent, Less than 6 Hours Per Day (ICD-10-PCS; principal; 2020-10-29)
PROC: 5A1D70Z Performance of Urinary Filtration, Intermittent, Less than 6 Hours Per Day (ICD-10-PCS; 2020-11-01)
DX: I12.0 Hypertensive chronic kidney disease with stage 5 chronic kidney disease or end stage renal disease (principal); N18.6 End stage renal disease; E87.2 Acidosis; D63.1 Anemia in chronic kidney disease; I16.0 Hypertensive urgency; E03.9 Hypothyroidism, unspecified; E78.5 Hyperlipidemia, unspecified; E78.00 Pure hypercholesterolemia, unspecified; K21.9 Gastro-esophageal reflux disease without esophagitis; E66.01 Morbid (severe) obesity due to excess calories; E11.22 Type 2 diabetes mellitus with diabetic chronic kidney disease; Z99.2 Dependence on renal dialysis
CPT/HCPCS: 36415; 36416; 36430; 71045; 80048; 80053; 85025; 86580; 86704; 86706; 86803; 86850; 86900; 86901; 87340; 87635; 90935; 93005; 96374; 96376; G0257; G0378; J0360; P9016; U0003; U0005